=== PATIENT | male | born 1945 | race Caucasian/White ===

== ENCOUNTER 2025-03-09 01:56 | Inpatient (IN) | payer OTHER, MEDICARE ==
[2025-03-09] VITALS (25 sets, daily range): BP systolic 60–184; BP diastolic 35–86; PULSE 54–87; RESP 9–22; O2SAT 93–100
[~2025-03-09] VITALS: Ht 185.4 cm; Wt 78.6 kg
--- NOTE | 2025-03-09 02:09 | ELECTROCARDIOGRAPH REPORT ---
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 Sigrid Gamboa Measurements Intervals [place] Rate: 92 P: 74 VA: 217 QRS: 71 QRSD: 89 T: 84 QT: 346 QTc: 429 Interpretive Statements Sinus rhythm Prolonged VA interval Probable left atrial enlargement Inferoposterior infarct, acute (RCA) Probable RV involvement, suggest recording right precordial leads STEMI Electronically Signed On 03-09-2025 2:30:[address] Sigrid Gamboa Please click the below link to view image of tracing.
[2025-03-09] MEDS: heparin 10,000 units/1 ML INJ IV ONE (02:25)
[2025-03-09] MEDS: normal saline 1000ml 1,000 ML IV ONE (02:25)
[2025-03-09 02:26] LABS: MEAN PLATELET VOLUME 7.7 FL (7.4-10.4); RED CELL DISTRIBUTION WIDTH 13.8 % (11.5-14.5)
[2025-03-09] MEDS: normal saline 1000ML IV soln IVB ONE (02:28)
--- NOTE | 2025-03-09 02:28 | Physician Documentation ---
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 For about the last week he has been having some weird symptoms where he has been having chest pressure chest pain GI symptoms heartburn with reflux like symptoms. Pressure some burning as well. It would come and go all week. Last night he seemed to have significant severe symptoms that did not seem to want to go away. He went to sleep was doing better but then awoke with those symptoms again again more severe but now radiating to the left shoulder as well as to the neck. He denies any dizziness no shortness of breath no palpitations. Denies diaphoresis. Medication Reconciliation Allergies: Coded Allergies: No Known Allergies (Unverified , 03/09/25) Past Medical History Past Medical History: Thyroid (unspecified) Past Surgical History: abdominal surgery, orthopedic surgeries, tonsillectomy Other Past Surgical History: diverticulum, ear surgery, eye surgery, Smoking Status: Former smoker Alcohol Use: Sober Drug Use: none Review of Systems All Other Systems at this time: Reviewed and Negative Physical Exam Vital Signs: RN Vital Signs have been reviewed: Yes, Temperature: 98.0, Source: Oral, Heart Rate: 98, Respiratory Rate: 18, BP: 183/98, Pulse Oximetry: 99, Weight: 74.000 Oxygen Flow Rate: 0 Physical Exam General: The patient is well developed, well nourished, nontoxic appearing and is in no acute distress. Skin: [place], warm and dry with no rashes. HEENT: Head was normocephalic and atraumatic. Eyes - pupils equal, round, reactive to light and accommodation. Extraocular movements were intact. Conjunctivae were nonicteric. The mouth and oropharynx were clear with moist mucous membranes. There were no pharyngeal exudates or erythema. Neck: Supple and nontender. There was no jugular venous distention, lymphadenopathy, thyromegaly or masses. Chest: Clear to auscultation bilaterally without wheezes, rales or rhonchi. No accessory muscle use. No dullness to percussion. Heart: Rate regular and rhythmic. S1, S2. No murmurs. Palpation of the chest wall was normal. No rubs or thrills. Abdomen: Soft, nontender and nondistended. Positive bowel sounds. No guarding or rebound. No hepatosplenomegaly or palpable masses. Extremities: No cyanosis, clubbing or edema. The patient moves all extremities. Pulses were equal and symmetric. Neurologic: Motor sensory grossly intact Psychologic: The patient was oriented to person, place and time. The patient demonstrated appropriate judgement and insight. Progress Progress Note STEMI alert was called upon arrival of the patient. Residency was called but did not have a chance to see the patient already went to the microbiology laboratory manager Patient's EKG showed inferior CO with significant ST-elevation in lead three AVF and reciprocal changes in one aVL as well as precordial leads Results/Orders Reviewed/noted all lab results: Yes Results/Orders Orders - CRUZ JAIN MD Chest,Single View (03/09/25 02:07) Monitor (03/09/25 02:07) Saline Lock (03/09/25 02:07) Oxygen (03/09/25 02:07) Electrocardiogram (03/09/25 02:07) Hs Troponin I W Calculations (03/09/25 04:07) Hs Troponin I W Calculations (03/09/25 05:07) Urinalysis, Cult If Indicated (03/09/25 02:07) Normal Saline 1000ml (0.9% Sodium Chlori (03/09/25 02:10) Electrocardiogram (03/09/25 02:07) Heparin 25,000 Unit/250ml Bag (Heparin 2 (03/09/25 02:10) Electrocardiogram (03/09/25 02:12) Hs Troponin I W Calculations (03/09/25 04:12) Hs Troponin I W Calculations (03/09/25 05:12) Heparin 10,000 Unit/Ml 1ml (Heparin 10,0 (03/09/25 02:35) PTT (03/09/25 08:30) Message To Nursing (03/09/25 02:45) Completed Orders - CRUZ JAIN MD Chest,Single View (03/09/25 02:07) Cbc/Diff (03/09/25 02:07) BMP (03/09/25 02:07) PBNP (03/09/25 02:07) Electrocardiogram (03/09/25 02:07) Hs Troponin I W Calculations (03/09/25 02:07) MG (03/09/25 02:07) Pt Inr (03/09/25 02:07) PTT (03/09/25 02:07) Type And Screen (03/09/25 02:07) Aspirin 81mg Chew Tablet (Aspirin 81mg C (03/09/25 02:10) Nitroglycerin 0.4mg/Hr Patch (Nitro-Dur (03/09/25 02:10) Normal Saline 1000ml (0.9% Sodium Chlori (03/09/25 02:10) Heparin 10,000 Unit/Ml 1ml (Heparin 10,0 (03/09/25 02:10) Nitroglycerin 0.2mg/Hour Patch (Nitro-Du (03/09/25 02:30) Tirofiban 12.5mg In Ns 250ml (Aggrastat (03/09/25 02:32) Lidocaine 1% 30ml Vial (Xylocaine 1% Via (03/09/25 02:32) Fentanyl/Pf (Fentanyl 0.05 Mg/Ml Syringe (03/09/25 02:32) Midazolam 1 Mg/Ml 2ml Inj. (Versed 1 Mg/ (03/09/25 02:32) Iohexol 350mg/Ml 50ml Inj (Omnipaque 350 (03/09/25 02:32) Heparin 1,000unit/Ml 10ml Vial (Heparin (03/09/25 02:33) Iohexol 350mg/Ml 100ml (Omnipaque 350mg/ (03/09/25 02:33) Heparin 1,000 Units/Ns 500ml (Heparin 1, (03/09/25 02:33) Metoprolol Tartrate Inj (Lopressor Iv) (03/09/25 02:35) Diphenhydramine Inj (Benadryl Inj.) (03/09/25 02:53) Iohexol 350mg/Ml 100ml (Omnipaque 350mg/ (03/09/25 03:09) Medications Received in ER Medications (Trade) Dose Ordered Sig/Lillian Route PRN Reason Start Time Stop Time Status Last Admin Dose Admin (aspirin 81MG chew tablet) 324 mg ONCE ONCE PO 03/09/25 02:10 03/09/25 02:11 DC 03/09/25 02:27 324 MG (0.9% sodium chloride (NS) 1000ml IV soln) 500 ml ONCE ONCE IVB 03/09/25 02:10 03/09/25 02:11 DC 03/09/25 02:28 500 ML Sodium Chloride 1,000 ml @ 150 mls/hr [id number] ONCE IV 03/09/25 02:10 03/09/25 08:49 03/09/25 02:25 150 MLS/HR (heparin 10,000 unit/ml 1ml inj) 4,000 units ONCE ONCE IV 03/09/25 02:10 03/09/25 02:12 DC 03/09/25 02:25 4,000 UNITS Heparin Sodium/ Dextrose 250 ml @ 9 mls/hr [id number] PRN IV TO MAINTAIN PTT WITHIN RANGE 03/09/25 02:10 03/09/25 02:33 9 MLS/HR (Nitro-Dur 0.2mg/ hour Patch) 1 patch ONCE ONCE TD 03/09/25 02:30 03/09/25 02:34 DC 03/09/25 02:35 1 PATCH (Lopressor IV) 2.5 mg ONCE ONCE IV 03/09/25 02:35 03/09/25 02:36 DC 03/09/25 02:38 2.5 MG Vital Signs 03/09/25 03/09/25 01:58 02:38 Temp 98.0 Pulse 98 100 Resp 18 B/P (MAP) 183/98 Pulse Ox 99 O2 Flow Rate 0 Laboratory Tests Test 03/09/25 02:15 White Blood Count 10.3 Red Blood Count 4.81 Hemoglobin 15.5 Hematocrit 44.8 Mean Corpuscular Volume 93.3 Mean Corpuscular Hemoglobin 32.2 H Mean Corpuscular Hemoglobin Concent 34.5 Red Cell Distribution Width 13.8 Platelet Count 247 Mean Platelet Volume 7.7 Neutrophils (%) (Auto) 77.6 H Lymphocytes (%) (Auto) 14.4 L Monocytes (%) (Auto) 6.3 Eosinophils (%) (Auto) 0.6 Basophils (%) (Auto) 1.1 H Neutrophils # (Auto) 8.0 H Lymphocytes # (Auto) 1.5 Monocytes # (Auto) 0.7 Eosinophils # (Auto) 0.1 Basophils # (Auto) 0.1 CBC Comment Prothrombin Time 11.0 INR International Normalized Ratio 1.1 Activated Partial Thromboplast Time 27 Coagulation Comments Sodium Level 139 Potassium Level 3.7 Chloride Level 103 Carbon Dioxide Level 26.0 Anion Gap 10 Blood Urea Nitrogen 9 Creatinine 1.12 H Estimated GFR/1.73 m2 64 BUN/Creatinine Ratio 8.0 L Glucose Level 149 H Calcium Level 8.8 Magnesium Level 1.9 Troponin I High Sensitivity 7884 *H Pro-B-Type Natriuretic Peptide 1425 H Albumin 4.4 Chemistry Comments Re-Evaluation Re-Evaluation : Re-Evaluation: Unchanged EKG/XRAY/CT/US/VASC/MRI EKG : Intepreting Monitor?: Yes Additional Comment [facility] Test Date: 2025-03-09 Test Time: 02:04:12 Pat Name: JAG ROGERS Department: EMERGENCY ROOM Room: 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 Cruz Jain Measurements Intervals [place] Rate: 92 P: 74 [place]: 217 QRS: 71 QRSD: 89 T: 84 QT: 346 QTc: 429 Interpretive Statements Sinus rhythm Prolonged [place] interval Probable left atrial enlargement Inferoposterior infarct, acute (RCA) Probable RV involvement, suggest recording right precordial leads STEMI Electronically Signed On 03-09-2025 2:30:[address] Cruz Jain Please click the below link to view image of tracing. EKG Date and Time:03/09/25203 Chest X-Ray : Additional Comments CHEST RADIOGRAPH Indication: CP Technique: Single frontal view of the chest was obtained COMPARISON: None FINDINGS: Lines and Tubes: None Lungs: Clear Pleura: No effusion. No pneumothorax. Cardiomediastinal contours: Unremarkable Bones: Unremarkable IMPRESSION: 1. No acute disease. Heart Score: Heart Score Response (Comments) Value History Highly Suspicious [address]-Deviation 2 Age >65 2 Risk Factors No known risk factors 0 Troponin >3 x's Normal limit 2 Total 8 Medical Decision Making Additional information obtaine: old records Findings Patient presents with ST-elevation and significant concern for a heart attack. Chest x-ray was obtained which did not show a widened mediastinum. Laboratory work was obtained WBC 10.3 with no anemia. Normal platelets. Chemistry was obtained normal creatinine of 1.12 however the troponin is elevated at 7884. ProBNP 1425. Rest of chemistries were within normal limits coagulation within normal limits urine was not collected. Upon arrival patient was immediately placed in a bed fluids were given aspirin nitroglycerin 0.2 mg was given because it is an inferior CO also I hung fluids and gave a 500 bolus before giving nitro. Heparin drip was given after a normal chest x-ray. Dr. Gates came to the bedside for an ST-elevation CO alert. lab pack chemist crew was in route. The patient then received 2.5 mg of of Lopressor. Patient was then whisked away under the caring hands of Dr. Gates to the microbiology laboratory manager. Patient appears well. Continuous spaghetti press helper interpretation shows sinus tachycardia heart rate 100s, abnormal, my interpretation. Pulse oximetry monitor interpretation shows normal oxygenation 99% room air, normal, my interpretation. Heart Score: 8 Differential Dx:Considerations: Include: angina, aortic dissection, CHF, costochondritis, esophageal reflux/spasm, gastritis, myocardial infarction, pericarditis, pleuritis, pneumothorax, pulmonary embolus, other Departure Disposition: ADMITTED INPATIENT Admitted to Inpatient Unit: to hospitalist, to commissary worker Admission Level of Care: PCU with Tele Impression: Primary Impression: STEMI (ST elevation myocardial infarction) Qualified Codes: I21.11 - ST elevation (STEMI) myocardial infarction involving right coronary artery Condition: Critical Referrals: NO PRIMARY CARE PROVIDER (PCP) Education Educated: Patient Educated regarding: diagnosis Critical Care Note Total Time (mins): 30 Critical Care Note The very real possibility of a deterioration of this patient's condition required the highest level of my preparedness for sudden, emergent intervention. I provided critical care services, which included medication orders, frequent reevaluations of the patient's condition and response to treatment, ordering and reviewing test results, and discussing the case with various consultants. Excludes time spent performing separately billable procedures. The critical care time associated with the care of the patient was 30 min Signature Scribe Signature: The note accurately reflects work and decisions made by me.Cruz Jain MD 03/09/25 03:17 Attestation: The note accurately reflects work and decisions made by me.Cruz Jain MD 03/09/25 03:16 CRUZ JAIN MD Mar 09, 2025 02:28
[2025-03-09] MEDS ORDERED: LIDOcaine 1% 30ml preserv. free vial ONE (02:32)
[2025-03-09] MEDS ORDERED: iohexol 350 MG/ML 50ML vial IV ONE ×2 (02:32→03:48)
[2025-03-09] MEDS ORDERED: midazolam 1 mg/ML 2ml injection ONE ×2 (02:32→03:36)
[2025-03-09] MEDS ORDERED: tirofiban 12.5mg in NS 250mL 250 ML IV ONE (02:32)
[2025-03-09] MEDS ORDERED: fentaNYL/PF 50MCG/1 ML 2ML syringe ONE (02:32)
[2025-03-09] MEDS ORDERED: heparin 1,000unit/ml 10ml vial 0 ML ONE (02:33)
[2025-03-09] MEDS: heparin 25,000 UNIT/250ml bag 250 ML IV PRN (02:33)
[2025-03-09 02:37] LABS: APTT 27 SECONDS (22-32); INR 1.1 INR
[2025-03-09] MEDS: metoprolol tartrate 1mg/ml inj IV ONE (02:38)
--- NOTE | 2025-03-09 02:38 | RADIOLOGY REPORT ---
CHEST RADIOGRAPH Indication: CP Technique: Single frontal view of the chest was obtained COMPARISON: None FINDINGS: Lines and Tubes: None Lungs: Clear Pleura: No effusion. No pneumothorax. Cardiomediastinal contours: Unremarkable Bones: Unremarkable IMPRESSION: 1. No acute disease.
[2025-03-09 02:46] LABS: CREATININE 1.12 MG/DL (0.60-1.10); PRO BRAIN NATRIURETIC PEPTIDE 1425 PG/ML (0-450); TOTAL CARBON DIOXIDE 26.0 MMOL/L (24-32); eCRCL 58 ML/MIN; eGFR 64 ML/MIN
[2025-03-09] MEDS: MESSAGE TO NURSING IV NR (02:48)
--- NOTE | 2025-03-09 02:51 | CONSULTATION REPORT ---
Cardiac Consultation Report Providers to CC ~ Subjective Subjective Cardiology consultation: 79-year-old male came to emergency room after several days of chest pain and now was found to have an inferior wall myocardial infarction. He has been started on heparin. Continued anginal chest pain. Electrocardiogram shows ST elevation two three and AVF with reciprocal depressions in one aVL. He is on thyroid medication. 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 He does enjoy cigarettes. No recreational drug use. He has had past orthopedic surgeries unspecific. And thyroid surgery. Objective Vitals Vital Signs Date Time Temp Pulse Resp B/P (MAP) Pulse Ox O2 Delivery O2 Flow Rate FiO2 03/09/25 02:38 100 03/09/25 01:58 98.0 18 183/98 99 0 Lab Results: 03/09/25 0215 03/09/25 0215 Objective Carotid no bruit chest clear to auscultation percussion heart no murmur no S3 gallop no rub abdomen active bowel sounds no bruits pulses plus two upper and lower extremities no edema. Ocular motion intact no nystagmus no tremor. Speech fluent. He is bearded. Coagulation Studies Laboratory Tests Test 03/09/25 02:15 Prothrombin Time 11.0 SECONDS (9.0-12.0) INR International Normalized Ratio 1.1 INR Activated Partial Thromboplast Time 27 SECONDS (22-32) Coagulation Comments Problem\Assessment\Plan Additional Plan Impression inferior wall myocardial infarction in progress Recommendation: Diagnostic coronary angiography with intervention. Risks benefits alternatives discussed he wants to proceed. Risks include and not restricted to stroke myocardial infarction renal failure neurologic vascular complications bleeding complications allergic reaction emergency coronary bypass grafting and its attendant complications. JAG ERICKSON MD Mar 09, 2025 02:51
[2025-03-09] MEDS ORDERED: ondansetron/PF 4mg/2ml inj IV PRN (04:05)
[2025-03-09] MEDS ORDERED: potassium Cl 20 mEq SR tablet PO PRN ×2 (04:05)
[2025-03-09] MEDS ORDERED: magnesium Cl slow-release 64mg tablet PO PRN (04:05)
[2025-03-09] MEDS ORDERED: magnesium sulf-water 2g/50mL 50 ML IV PRN (04:05)
[2025-03-09] MEDS ORDERED: potassium Cl 40MEQ/1/2NS 520ml 520 ML IV PRN (04:05)
[2025-03-09] MEDS ORDERED: magnesium sulf-water 4G/100mL 100 ML IV PRN (04:05)
--- NOTE | 2025-03-09 04:13 | CARDIAC CATH REPORT ---
Cardiology Post Cath Findings Findings Findings: Cardiology post catheterization note: Uncomplicated left heart catheterization coronary arteriography left ventriculography right coronary PTCA and serial stent deployment. 1. Left ventriculogram ejection fraction 45% with inferior apical small akinetic segment with areas of hypokinesis. 2.100 % right coronary improved to 0% MUSTAPHA 0 flow improved to MUSTAPHA three 3. Serial 80% right coronary stenosis prior to stent. Bifurcational 50% posterior descending and distal right coronary narrowing. 4. 60% left main coronary artery narrowing. 5. Bifurcational left anterior descending severe diagonal narrowing of proximally 80% to 85%. 6. Circumflex 40% narrowing large vessel. Comment: Cardiovascular surgical consultation is to be obtained. Continue heparin and Aggrastat for time being. ST segment slowly improving. Arterial line in place. Start low-dose metoprolol XL 12.5 mg daily lisinopril 2.5 mg daily Lipitor 40 mg daily continue home thyroid medication. Use intravenous nitroglycerin for blood pressure control as needed if blood pressures greater than 160 JAG ERICKSON MD Mar 09, 2025 04:13
--- NOTE | 2025-03-09 04:13 | HISTORY AND PHYSICAL-Residence ---
History & Physical Providers to CC Resident Creating Document: EMILE ALFONSO RES CC: PATRIZIA VIVAR MD ~ History of Present Illness Primary Medical Doctor: Dr. [facility] Reason for Admit\Complaint: Chest discomfort worsening since night History of Present Illness 79-year-old male with past medical history of hypothyroidism, Garibay's esophagus, smoker, presented to the ER with chief complaints of chest discomfort for one week, worsening for one night. Patient stated for the past two one week he felt funny kind of burning discomfort over the left side of the chest which is associated with radiation to jaw. He felt like bandlike sensation around his neck and lower head. He denies palpitations, lightheadedness, sweating. He looked up online and even walk could two to four flights of states in few minutes to increased exertion and see whether the pain can be reproduced by exertion. However he noticed the pain was not getting worsened with exertion. Yesterday night he had chest pain which radiated to his left shoulder and it was persistent intensity increased to 5/10 and this made him come to the ER. He denies past medical history of CAD. No history of bleeding disorders. Never had stress test done in the past one year Family history of dissecting aortic aneurysm in mother and stroke/TIAs in father Allergies: Coded Allergies: No Known Allergies (Unverified , 03/09/25) Past Medical History Past Medical History Hypothyroidism Garibay's esophagus Past Surgical History Surgical History Comment ear surgery for fungal CSOM Zenker's diverticulectomy Inguinal hernia surgery Cataract surgery Past Social History Social History Comment Smoker- currently smoking one cigarettes a day, used to smoke 2-4 packs day till the age of 32, alcohol- thinking one drink once in two weeks no other illicit drug use 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 no change in appetite/weight HEENT: No blurring of the vision, No sore throat, epistaxis, tinnitus Cardiovascular: Positive for chest pain/discomfort, no palpitations, syncope. No pedal edema Respiratory: No sob, cough,, hemoptysis, complaining of postnasal drip Gastrointestinal: Positive for nausea No abdominal pain, vomiting. No diarrhea, constipation, melena. Genitourinary: No frquency, urgency, incontinence, nocturia. No dysuria, hematuria Musculoskeletal: No arthralgia, myalgia Endocrine: No fatigue, polydipsia, polyuria. No heat or cold intolerance Neurologic: No headache, vertigo. No weakness, numbness or tingling of extremities Psychiatric: No hallucinations/delusions, no anhedonia, no suicidal ideation\ Hematologic: No bleeding or bruises Reviewed in full. All negative except for pertinent positives in HPI Exam Vitals: Vital Signs Date Time Temp Pulse Resp B/P (MAP) Pulse Ox O2 Delivery O2 Flow Rate FiO2 03/09/25 02:38 100 03/09/25 01:58 98.0 18 183/98 99 0 General: General: Pleasant elderly male, AAO x4, not in apparent distress Head: Normocephalic with an atraumatic Eyes: Pupils- 3mm, reacting to light, conjunctiva- anicteric Nose and throat: No polyps, septum- normal, no mucosal ulcers Neck: Supple, no lymphadenopathy, no carotid bruit Respiratory: No use of accessory muscles of respiration, Bilateral normal vesiscular breath sounds heard. No wheeze, rhochi or creps Cardiac: S1-S2 heard, rythm regular, no gallop/murmur Abdomen: non distended, no tenderness, no organomegaly, bowel sounds- heard Extremities: no clubbing, no pedal edema, no deformities, peripheral pulses- 2+, right fem sheath in place Skin: warm and dry, no rash, no purpura Neuro: No focal deficit, gross cranial nerve exam- normal Diagnostic Data Last Recorded Lab Results: 03/09/25 0215 03/09/25 0215 Diagnostic Data: Laboratory Tests Test 03/09/25 02:15 Prothrombin Time 11.0 SECONDS (9.0-12.0) INR International Normalized Ratio 1.1 INR Activated Partial Thromboplast Time 27 SECONDS (22-32) Coagulation Comments Advance Care Planning Advanced Care plannin - 30 Minutes (Code status is discussed with him and and the patient stated he does not want prolonged resuscitation or to be a vegetable. His son would be making decisions for him if needed. Currently he is okay with full code) Additional Plan 79-year-old male with past medical history of hypothyroidism, Garibay's esophagus, presented to the ER with chief complaints of chest discomfort for one week, worsening for the past one day Inferior wall STEMI S/p right coronary PTCA and serial stent deployed on 03/09 -EKG showed ST elevation in two three AVF, reciprocal depressions in one, aVL -high sensitivity troponins x1- 7884 -in the ER patient received aspirin 324 mg, heparin 4000 units, NTG 0.4 mg/hour patch, Lopressor 2.5 mg IV -he was taken to clinical laboratory aide by Dr. Gates -coronary angiogram findings- 100 % RCA, serial 80% right coronary stenosis, 50% posterior descending and distal coronary narrowing, 60% left main coronary artery narrowing, 40% LCX, 80-85% lad narrowing -right coronary PTCA and serial stent deployed Plan -follow up on lipid panel, A1c, TSH, 2D echo -initiated on atorvastatin 40 mg once daily, -start on low-dose metoprolol succinate 12.5 mg once daily, lisinopril 2.5 mg once daily -maintain systolic blood pressure less than 160, use intravenous NTG if needed -recommended cardiovascular surgical consultation -continue heparin and Aggrastat Hypothyroidism -follow up on TSH -continue levothyroxine 50 mcg once daily Barretts esophagus -continue Protonix 40 mg once daily Code Status: Full code Line/tube: PIV, right femoral arterial line, right fem sheath DVT prophylaxis: Heparin Nutrition: Heart healthy PT: Yes Prognosis: Guarded Disposition: Continue care in ICU, CTVS consultation in the a.m. Emile Alfonso MD IM PGY-3 resident Labs and Vital per Dr Alfonso's note above Agree with her A/P Plan reviewed with bedside team. Patient seen through remote audiovisual assessment through HIPAA compliant setup. All labs, flowsheets, and images reviewed Cumulative nonprocedural care time spent in directed patient care = 60 min Date of Service: Mar 09, 2025 Billing Provider: PATRIZIA VIVAR MD, HARIVARSHA, RES Mar 09, 2025 04:13 PATRIZIA VIVAR MD Mar 09, 2025 05:54
[2025-03-09 04:44] LABS: CHOL/HDL RATIO 6.1 (0.00-4.99); LDL CHOLESTEROL 217 MG/DL (50-100)
[2025-03-09] MEDS: PERFLUTREN PROTEIN-A MICROSPHR (Optison) 0.22 MG/ML 3ML VIAL IV ONE (04:46)
[2025-03-09] MEDS: nitroGLYCERIN-Tridil 50MG/D5W 250 ML IV ONE (04:47)
[2025-03-09] MEDS ORDERED: nitroGLYCERIN-Tridil 50MG/D5W 250 ML IV PRN (04:50)
[2025-03-09] MEDS: NORepinephrine 8mg/ 250ml NS 250 ML IV SCH (05:54)
[2025-03-09] MEDS: atropine 0.1mg/ml 10ml syringe ONE (05:54)
[2025-03-09] MEDS: normal saline 1000ml 1,000 ML IV SCH ×2 (05:55→06:00)
[2025-03-09] MEDS: NORepinephrine 8mg/ 250ml NS 250 ML IV ONE (05:57)
[2025-03-09] MEDS: atropine 0.1mg/ml 10ml syringe IV ONE (05:57)
[2025-03-09] MEDS: tirofiban 12.5mg in NS 250mL IV SCH (06:00)
[2025-03-09] MEDS ORDERED: OXAZEpam 15mg capsule PO PRN (06:00)
[2025-03-09] MEDS ORDERED: HYDROcodone/acetaminophen 10/325mg tab PO PRN ×2 (06:00)
[2025-03-09 06:20] LABS: MEAN PLATELET VOLUME 8.4 FL (7.4-10.4); RED CELL DISTRIBUTION WIDTH 14.0 % (11.5-14.5)
[2025-03-09 06:30] LABS: APTT 60 SECONDS (22-32)
--- NOTE | 2025-03-09 07:08 | ELECTROCARDIOGRAPH REPORT ---
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 MEENA Gutiérrez Measurements Intervals [place] Rate: 75 P: 78 AL: 208 QRS: 31 QRSD: 87 T: -52 QT: 429 QTc: 480 Interpretive Statements Sinus rhythm Borderline low voltage, extremity leads Abnormal T, consider ischemia, inferior leads ST elevation, consider inferior injury Baseline wander in lead(s) V3 Electronically Signed On 03-09-2025 17:33:[address] MEENA Gutiérrez Please click the below link to view image of tracing.
[2025-03-09] MEDS: MESSAGE TO NURSING IV ONE ×3 (07:20→21:30)
[2025-03-09 07:23] LABS: CREATININE 0.99 MG/DL (0.60-1.10); TOTAL CARBON DIOXIDE 21.7 MMOL/L (24-32); eCRCL 65 ML/MIN; eGFR 73 ML/MIN
--- NOTE | 2025-03-09 07:46 | CONSULTATION REPORT ---
History of Present Illness Providers to Chest pain with STEMI Reason for Admit\Admit Dx: Chest discomfort worsening since night Refering MD: Dr. [facility] History of Present Illness 79 yo male former 40 pk year smoking history presents with one month c/o fatigue and atypical CP. Over the past week it has progressed and due to the severity he sought medical attention. He was diagnosed with STEMI and emergency cardiac catheterization revealed acute closure of the RCA and additional 3 vessel CAD with moderate LV dysfunction. PCI stent was inserted in the RCA and the patient was started on anticoagulation. He is currently hemodynamically stable and pain free. I have been asked to see him regarding CABG. Allergies: Coded Allergies: No Known Allergies (Unverified , 03/09/25) Past Medical History Medical History Comment Dyslipidemia Garibay's esophagus Hypothyroidism Former smoker Past Surgical History Surgical History Comment Zenker's diverticulectomy Past Social History Social History Comment Remote 40 pack year smoking history. Patient quit smoking over a year ago by his report Physical Exam Last Vital Signs Recorded: Temperature: 98.0, Source: Temporal, Heart Rate: 80, Respiratory Rate: 14, BP: 150/81, Pulse Oximetry: 100, Weight: 74.000 General Appearance: alert, no apparent distress, thin Neck: normal inspection, supple, non-tender, carotid bruit (soft bruit on right) Respiratory: lungs clear, no respiratory distress Chest: no accessory muscle use, chest non-tender Cardiovascular: normal peripheral pulses, regular rate, rhythm, no edema, no JVD, no murmur Peripheral Pulses: 0 carotid (L); 1+ carotid (R) Gastrointestinal: normal palpation, non-tender Extremities: non-tender, no edema, no calf tenderness Neurologic: oriented x4 Psychiatric: normal mood/affect Skin: normal color, warm/dry Review of Systems ROS ROS Comments: as per HPI Results Diagram Lab Result Diagram: 03/09/25 0530 03/09/25 0530 Assessment/Plan 79 yo male with h/o Dyslipidemia, Garibay's esophagus and Hypothroidism, former 40 pk year smoking history presents with one month c/o fatigue and atypical CP. Over the past week it has progressed and due to the severity he sought medical attention. He was diagnosed with STEMI and emergency cardiac catheterization revealed acute closure of the RCA and additional 3 vessel CAD with moderate LV dysfunction. PCI stent was inserted in the RCA and the patient was started on anticoagulation. He is currently hemodynamically stable and pain free. I have been asked to see him regarding CABG. I will plan Coronary Artery Bypass Surgery in next 24 - 48 hours after complete preoperative evaluation. This will include RA ABG, chest CT without, vein mapping, carotid US and echocardiogram. I have discussed above with the patient including plan for CABG. I reviewed the associated risk and complications and answered all of his questions. He understands and agrees to proceed. PIOTR ARGUETA MD Mar 09, 2025 07:46
[2025-03-09] MEDS ORDERED: docusate sod 100mg capsule PO SCH (08:00)
[2025-03-09] MEDS: K and/or MAG REPLACEMENT MC SCH (08:00)
[2025-03-09 08:18] LABS: CHOL/HDL RATIO 5.4 (0.00-4.99); LDL CHOLESTEROL 166 MG/DL (50-100)
[2025-03-09 09:00] LABS: MEAN PLATELET VOLUME 8.7 FL (7.4-10.4); RED CELL DISTRIBUTION WIDTH 14.5 % (11.5-14.5)
[2025-03-09] MEDS ORDERED: MESSAGE TO NURSING PO ONE ×2 (09:05)
[2025-03-09] MEDS ORDERED: VANCOMYCIN/H2O 1.5g/300mL PB 300 ML IV ONE (09:05)
[2025-03-09] MEDS ORDERED: MESSAGE TO PHARMACY IJ ONE ×2 (09:05→09:25)
[2025-03-09] MEDS ORDERED: dextrose 50%-water 50ml dispensing syringe IV PRN (09:05)
[2025-03-09] MEDS ORDERED: ceFAZolin 2gm/dext,iso 50mL 50 ML IV ONE (09:05)
[2025-03-09] MEDS ORDERED: insulin glargine (Lantus) pen - multi-dose SQ PRN (09:05)
[2025-03-09] MEDS: Insulin Reg/NS 100units/100mL 100 ML IV SCH (09:05)
[2025-03-09 09:16] LABS: CREATININE 0.98 MG/DL (0.60-1.10); TOTAL CARBON DIOXIDE 25.8 MMOL/L (24-32); eCRCL 66 ML/MIN; eGFR 74 ML/MIN
[2025-03-09 09:49] LABS: INR 1.1 INR
[2025-03-09 09:55] LABS: ABG BASE EXCESS -0.9 mmol/L (-2.0-3.0); ABG HCO3 22.8 mmol/L (21.0-28.0); ABG OXYGEN SATURATION 97.5 % (94.0-98.0); ABG PCO2 (T) 34.5 mmHg (35.0-48.0); ABG PH (T) 7.437 (7.350-7.450); ABG PO2 (T) 85.2 mmHg (83.0-108.0); ALLEN'S TEST POSITIVE; FCOHb 0.8 % (0.5-1.5); FHHb 2.5 % (0.0-5.0); FIO2 32.0 mmHg/%; FLOW 3 L/min; FMetHb 0.0 % (0.0-1.5); FO2Hb 96.7 % (94.0-98.0); MODE NASAL CANNULA; PATIENT TEMPERATURE 36.6; RESPIRATORY RATE 16 b/min; TOTAL HEMOGLOBIN 13.9 G/dl (13.5-17.5)
[2025-03-09] MEDS: docusate sod 100mg capsule PO SCH (10:13)
[2025-03-09] MEDS: levoTHYROXINE 25mcg tablet PO SCH (10:13)
[2025-03-09] MEDS ORDERED: LEVO25TA7 PO (10:29)
[2025-03-09 11:39] LABS: LEUKOCYTE ESTERASE ,URINE NEGATIVE (Neg); NITRITES, URINE NEGATIVE (Neg); OCCULT BLOOD,URINE NEGATIVE (Neg)
[2025-03-09 11:44] LABS: UA COLLECTION TYPE NON-SPECIFIED
--- NOTE | 2025-03-09 13:23 | RADIOLOGY REPORT ---
Lower Extremity Duplex Doppler Reflux Study Date: 03/09/2025 11:28 AM Clinical History: preop Comparison: None Findings: InaRations Pre-op Risk Factors Cardiac Disease Vein Measurements Great Saphenous Small Saphenous Right Lef Right Left Saph-Fem. 3.55mm 3.60mm Proximal Junction Mid Thigh 2.37mm 2.40mm Mid Distal Thigh 3.03mm 2.96mm Distal Proximal Calf 3.35mm 2.50mm Mid Calf 2.56mm 1.70mm Distal Calf 3.25mm 1.99mm CONCLUSION The Great Saphenous Vein was located, marked and measured bilaterally. The Great Saphenous Vein appears patent bilaterally.
[2025-03-09] MEDS: heparin 10,000 units/1 ML INJ IV PRN (14:27)
--- NOTE | 2025-03-09 18:14 | PROGRESS NOTE ---
Daily Progress Note Providers to CC ~ Antibiotic Timeout Antibiotic Ordered?: No Subjective Patient was seen in CICU and as per patient he has already evaluated by Cardiovascular surgeon likely Dr. Alcazar. Myles Denied any chest pain to me in visit. I reviewed Cardiothoracic vascular consult note and as per Dr. Bueno" I will plan Coronary Artery Bypass Surgery in next 24 - 48 hours after complete preoperative evaluation.This will include RA ABG, chest CT without, vein mapping, carotid US and echocardiogram. I have discussed above with the patient including plan for CABG. I reviewed the associated risk and complications and answered all of his questions. He understands and agrees to proceed. Objective Vital Signs Date Time Temp Pulse Resp B/P (MAP) Pulse Ox O2 Delivery O2 Flow Rate FiO2 03/09/25 18:00 55 11 113/51 (71) 93 Nasal Cannula 1.0 03/09/25 17:00 98.2 Result Diagram: 03/09/25 0807 03/09/25 0807 General-patient not in any acute distress, alert awake oriented, age- appropriate, looks comfortable HEENT-atraumatic normocephalic, neck supple without elevated JVD, no thyromegaly or carotid bruit. No lymphadenopathy bilaterally. Eyes-no icterus or pallor seen in eyes Chest-clear to auscultation bilaterally, breathing nonlabored no tachypnea, no wheezing, no crepitation, no crackles. Heart-S1-S2 normal, regular heart rate no murmur Abdomen bowel sounds positive on auscultation, soft nondistended nontender no guarding, no rigidity Skin no active skin rash Neurology-grossly intact, nonfocal alert awake oriented Extremity- no pedal edema able to move all 4 extremities Psychiatry - patient is not confused or agitated cooperated during physical examination Coagulation Studies Laboratory Tests Test 03/09/25 05:30 03/09/25 08:07 03/09/25 13:46 Activated Partial Thromboplast Time 60 SECONDS (22-32) H Prothrombin Time 11.4 SECONDS (9.0-12.0) INR International Normalized Ratio 1.1 INR APTT (Heparin Protocol) 39 SECONDS (45-60) L Coagulation Comments Problem\\Assessment\\Plan 79-year-old male with past medical history of hypothyroidism, Garibay's esophagus, presented to the ER with chief complaints of chest discomfort for one week, worsening for the past one day Inferior wall STEMI S/p right coronary PTCA and serial stent deployed on 03/09 -EKG showed ST elevation in two three AVF, reciprocal depressions in one, aVL -high sensitivity troponins x1- 7884 -in the ER patient received aspirin 324 mg, heparin 4000 units, NTG 0.4 mg/hour patch, Lopressor 2.5 mg IV -he was taken to garage laborer by Dr. Gates -coronary angiogram findings- 100 % RCA, serial 80% right coronary stenosis, 50% posterior descending and distal coronary narrowing, 60% left main coronary artery narrowing, 40% LCX, 80-85% lad narrowing -right coronary PTCA and serial stent deployed Plan reviewed lipid panel, A1c, TSH, 2D echo - on atorvastatin 40 mg once daily, -on low-dose metoprolol succinate 12.5 mg once daily, lisinopril 2.5 mg once daily -will maintain systolic blood pressure less than 160, use intravenous NTG if needed - cardiovascular surgical consultation done by Dr. Alcazar. Myles -continue heparin and Aggrastat 03/09- I reviewed Cardiothoracic vascular consult note and as per Dr. Bueno" I will plan Coronary Artery Bypass Surgery in next 24 - 48 hours after complete preoperative evaluation.This will include RA ABG, chest CT without, vein mapping, carotid US and echocardiogram. I have discussed above with the patient including plan for CABG. I reviewed the associated risk and complications and answered all of his questions. He understands and agrees to proceed. Hypothyroidism -TSH 7.50 -continue levothyroxine 50 mcg once daily Barretts esophagus -continue Protonix 40 mg once daily Code Status: Full code Line/tube: PIV, right femoral arterial line, right fem sheath DVT prophylaxis: Heparin Nutrition: Heart healthy PT: Yes Patient's current condition is guarded further management as recommended by cardiovascular thoracic surgeon Dr. Bueno . We will continue to follow patient in CICU Date of Service: Mar 09, 2025 Billing Provider: SARAH HARRELL MD Common Visit Codes: [id number] INP/OBS CARE(HIGH) SARAH HARRELL MD Mar 09, 2025 18:13
--- NOTE | 2025-03-09 18:26 | VASCULAR REPORT ---
Indication: 40 year history of smoking, hypertension, preoperative Technique: Real-time ultrasound images of the neck vessels with bentley-scale, color and wave Doppler were obtained. Comparison: None Findings: There is aoxo-tz-aswtlyia atherosclerotic plaque bilaterally most pronounced within the carotid bulb/ proximal ICA region bilaterally. The following peak systolic velocities were recorded in cm/sec: Right internal carotid: 83 Right common carotid: 130 Right external carotid: 102 Right internal/common carotid ratio: 1.2 Left internal carotid: 89 Left common carotid: 100 Left external carotid: 144 Left internal/common carotid ratio: 0.1 Right vertebral artery: Patent with normal antegrade direction of flow. Left vertebral artery: Patent with normal antegrade direction of flow. Impression: No hemodynamically significant stenosis by velocity criteria. Rarh-kg-osybdkzp bilateral atherosclerotic plaque.
[2025-03-09] MEDS: mupirocin 2% nasal ointment 1gm UD NS SCH (20:00)
[2025-03-10] VITALS (24 sets, daily range): BP systolic 97–166; BP diastolic 43–74; PULSE 50–76; RESP 9–22; O2SAT 94–100
[2025-03-10] MEDS: heparin 25,000 UNIT/250ml bag 250 ML IV PRN (01:40)
[2025-03-10 03:16] LABS: CREATININE 1.06 MG/DL (0.60-1.10); TOTAL CARBON DIOXIDE 26.8 MMOL/L (24-32); eCRCL 61 ML/MIN; eGFR 68 ML/MIN
[2025-03-10 03:20] LABS: MEAN PLATELET VOLUME 8.6 FL (7.4-10.4); RED CELL DISTRIBUTION WIDTH 14.0 % (11.5-14.5)
[2025-03-10] MEDS: MESSAGE TO NURSING IV ONE ×4 (04:10→21:18)
[2025-03-10 06:58] LABS: PHOSPHORUS 3.0 MG/DL (2.3-4.5)
[2025-03-10] MEDS ORDERED: metoprolol succinate 25mg (24-HOUR) SR. Tablet PO SCH (08:00)
[2025-03-10] MEDS ORDERED: metoprolol tartrate 1mg/ml inj IV ONE (08:00)
[2025-03-10] MEDS ORDERED: heparin 10,000 units/1 ML INJ ONE (08:00)
[2025-03-10] MEDS ORDERED: metoprolol tartrate 12.5mg (1/2 tablet) PO SCH (08:00)
--- NOTE | 2025-03-10 08:42 | PROGRESS NOTE ---
Progress Note CV Providers to CC ~ Antibiotics Ordered?: No Subjective Subjective No overnight chest complaints. Uncomfortable as he is immobile d/t his sheath remaining in place. Preop teaching done. Preop studies reviewed. ABG was done on 3L NC rather than room air. For some reason Chest CT was not done despite being ordered. I have spoken with Radiology and they have assured me that CT will be done today. Planning for CABG tomorrow AM at 0830. Objective Vitals Vital Signs Date Time Temp Pulse Resp B/P (MAP) Pulse Ox O2 Delivery O2 Flow Rate FiO2 03/10/25 08:00 57 03/10/25 06:00 97.9 17 98/45 (62) 99 Nasal Cannula 1.0 Lab Results: 03/10/25 0227 03/10/25 0227 Coagulation Studies Laboratory Tests Test 03/09/25 05:30 03/09/25 08:07 03/10/25 02:27 Activated Partial Thromboplast Time 60 SECONDS (22-32) H Prothrombin Time 11.4 SECONDS (9.0-12.0) INR International Normalized Ratio 1.1 INR APTT (Heparin Protocol) 47 SECONDS (45-60) Coagulation Comments Cardiac Rhythm: Sinus Rhythm KRISTEN ENCISO Mar 10, 2025 08:42
--- NOTE | 2025-03-10 09:46 | RADIOLOGY REPORT ---
CLINICAL INFORMATION: Preoperative exam. Planned CABG. TECHNIQUE: Axial CT imaging of the chest was performed without IV contrast. Sagittal and coronal reformatted images were made, stored and reviewed. Evaluation is limited without IV contrast. One or more of the following dose reduction techniques were used: Automated exposure control. Adjustment of mA and/or kV according to patient size. CTDIvol = 13.85 mGy DLP = 593.96 mGy-cm COMPARISON: DI CHEST,SINGLE VIEW on DOS: 03/09/25 FINDINGS: Aorta: Moderate atherosclerotic calcification at the aortic arch and descending thoracic aorta. No aneurysm. Cardiac: Heart size is within normal limits. Dense coronary artery calcification. Mediastinum/aurora: Mildly prominent right lower paratracheal lymph node measuring up to 1.1 cm in short axis dimension, likely reactive, with normal reniform shape and fatty hilum. Heterogeneous thyroid gland with 2.7 cm nodule in the right thyroid lobe. Lungs: Scattered areas of subsegmental atelectasis. There is mild pleural parenchymal scarring in the lung apices. Pulmonary arteries: No gross abnormality. Chest wall: No mass or other abnormality. Upper abdomen: Increased density in the gallbladder, likely vicarious excretion of contrast from the recent cardiac catheterization. Nonspecific thickening of the gastric folds at the fundus and body of the stomach. Bones: No fracture or suspicious intraosseous lesions. IMPRESSION: 1. No evidence of acute disease in the chest. 2. Moderate atherosclerotic calcification of the thoracic aorta 3. Right thyroid nodule. Based on size, recommend nonemergent thyroid ultrasound to further characterize, per ACR white paper on incidentally detected thyroid nodules. 4. Additional nonacute findings as described above.
--- NOTE | 2025-03-10 12:42 | PROGRESS NOTE ---
Progress Note Cardiology Providers to CC ~ Subjective Subjective Cardiology progress note: rescue serial stents right coronary 03/09/2025 four inferior wall MS. patient maintained on intravenous heparin and Aggrastat since that time. He is scheduled for coronary bypass grafting for left main and three-vessel coronary arterial disease for 06/2024. Sons at bedside. Once again I explained to the patient the seriousness of his situation he has coronary artery disease and he seems perplexed that he could develop this as he has been taking statins. Objective Result Diagram: 03/10/2522603/10/25226 Objective Carotid no bruit chest clear to auscultation percussion heart no S3 gallop no rub abdomen active bowel sounds no bruits pulses plus two upper and lower extremities no edema. Ocular motion intact no nystagmus no tremors speech fluent symmetric normal strength. Coagulation Studies Laboratory Tests Test 03/09/25 05:30 03/09/25 08:07 03/10/25 08:30 Activated Partial Thromboplast Time 60 SECONDS (22-32) H Prothrombin Time 11.4 SECONDS (9.0-12.0) INR International Normalized Ratio 1.1 INR APTT (Heparin Protocol) 52 SECONDS (45-60) Coagulation Comments Problem\Assessment\Plan Additional Plan Assessment: Stable awaiting surgery on intravenous heparin intravenous Aggrastat. Plan: Patient already scheduled for surgery for 03/11. Heparin needs to be continued do not stop. Aggrastat will be stopped as per surgical desire prior to procedure. Usually 6-8 hours prior to procedure. Half-life 2 hours. JAG ERICKSON MD Mar 10, 2025 12:42
--- NOTE | 2025-03-10 17:40 | CARDIOLOGY REPORT ---
APPROVED REPORT EXAM: Comprehensive 2D, Doppler, and color-flow Echocardiogram. Patient Location: 2009 A Blood Pressure: 122/60 mmHg Heart Rate: 80 bpm Rhythm: SINUS Indications MYOCARDIAL INFARCTION ELEVATED PROBNP (1425) HS TROPONIN (784, >125,000) S/P RCA STENT X2 Specialty Cook: none, Loan Gates MD (consult) Previous echo: none 2D Dimensions RVDd 4.6 cm IVSd 1.1 (0.7-1.1cm) LVDd 4.4 cm PWd 1.1 (0.7-1.1cm) IVSs 1.2 (0.8-1.2cm) LVDs 3.5 (2.5-4.0cm) PWs 1.4 (0.8-1.2cm) LVOT Diameter 2.20 (1.8-2.4cm) LVEF(%) 42.0 (>50%) FS (%) 20.4 % SV 36.9 ml CO 2.5 L/min M-Mode Dimensions Left Atrium(MM) 3.81 (2.5-4.0cm) Aortic Root 3.66 (2.2-3.7cm) Aortic Cusp Exc 1.72 (1.5-2.0cm) MV EPSS 0.6 (<0.5cm) Aortic Valve AoV Peak Ilia. 129.2 cm/s AoV VTI 22.6 cm AO Peak GR. 6.7 mmHg AO Mean GR. 3 mmHg LVOT VTI 17.20 cm LVOT Peak Ilia. 78.3 cm/s TAYLOR(VTI)/BSA 2.89 cm2/m2 TAYLOR (VTI) 2.89 cm2 AI P 1/2 Time 500 ms AV DI 0.76 % Mitral Valve MV E Velocity 41.9 cm/s MV Peak Gr. 2 mmHg MV DECEL TIME 296 ms MV A Velocity 88.8 cm/s MV PHT 48 ms E/A Ratio 0.5 MVA (PHT) 4.58 cm2 MV VMax 78.7 cm/s TDI Medial E' P. V 8.62 cm/s E/Medial E' 4.9 Tricuspid Valve TR P. Velocity 233 cm/s RAP ESTIMATE 10 mmHg TR Peak Gr. 22 mmHg RVSP 32 mmHg Pulmonary Vein S1 Velocity 39.3 cm/s D2 Velocity 28.2 cm/s PVa Velocity 25.7 cm/s PVa Duration 128 msec LEFT VENTRICLE Normal LV size and wall thickness. Prominent septal knuckle measuring 1.64 cm. No gradient detected around knuckle. Multisegmental wall motion abnormalities. There is moderate LV systolic dysfunction present. Overall estimated LV ejection fraction is about 45% RIGHT VENTRICLE RV is moderately dilated with at least mildly reduced function. RVSP is estimated at 32 mmHg. ATRIA The left atrium size is normal. Mobile interatrial septum - no flow detected. The right atrium size is normal. AORTIC VALVE Trileaflet AV appears mildly sclerotic without stenosis. Moderate insufficiency. MITRAL VALVE Mild MV annular calcification without stenosis. Trace regurgitation. TRICUSPID VALVE TV appears structurally normal with trace regurgitation. PULMONIC VALVE Normal PV without stenosis, physiologic insufficiency. GREAT VESSELS Aortic root is normal in size. PERICARDIUM Normal pericardium. No effusion. Other Information Study Quality: Adequate, but difficult due to patient being supine s/p heart catheterization. Conclusion There is moderate LV systolic dysfunction present. Overall estimated LV ejection fraction is about 45% Normal LV size and wall thickness. Prominent septal knuckle measuring 1.64 cm. No gradient detected around knuckle. Multisegmental wall motion abnormalities. Trileaflet AV appears mildly sclerotic without stenosis. Moderate insufficiency. Mild MV annular calcification without stenosis. Trace regurgitation. Normal PV without stenosis, physiologic insufficiency. Normal pericardium. No effusion.
--- NOTE | 2025-03-10 18:14 | PROGRESS NOTE ---
Daily Progress Note Providers to CC ~ Antibiotic Timeout Antibiotic Ordered?: No Subjective Patient was seen in presence of his neighbors and friends today. He is going to have CABG surgery tomorrow to be done by Dr. Myles Alcazar. Patient looks comfortable denied any new concerns Objective Vital Signs Date Time Temp Pulse Resp B/P (MAP) Pulse Ox O2 Delivery O2 Flow Rate FiO2 03/10/25 18:00 64 13 134/50 (78) 95 Room Air 03/10/25 12:00 98.1 03/10/25 06:00 1.0 Result Diagram: 03/10/2522603/10/25226 General-patient not in any acute distress, alert awake oriented, age- appropriate, looks comfortable HEENT-atraumatic normocephalic, neck supple without elevated JVD, no thyromegaly or carotid bruit. No lymphadenopathy bilaterally. Eyes-no icterus or pallor seen in eyes Chest-clear to auscultation bilaterally, breathing nonlabored no tachypnea, no wheezing, no crepitation, no crackles. Heart-S1-S2 normal, regular heart rate no murmur Abdomen bowel sounds positive on auscultation, soft nondistended nontender no guarding, no rigidity Skin no active skin rash Neurology-grossly intact, nonfocal alert awake oriented Extremity- no pedal edema able to move all 4 extremities Psychiatry - patient is not confused or agitated cooperated during physical examination Coagulation Studies Laboratory Tests Test 03/09/25 05:30 03/09/25 08:07 03/10/25 13:36 Activated Partial Thromboplast Time 60 SECONDS (22-32) H Prothrombin Time 11.4 SECONDS (9.0-12.0) INR International Normalized Ratio 1.1 INR APTT (Heparin Protocol) 49 SECONDS (45-60) Coagulation Comments Problem\\Assessment\\Plan 79-year-old male with past medical history of hypothyroidism, Garibay's esophagus, presented to the ER with chief complaints of chest discomfort for one week, worsening for the past one day Inferior wall STEMI S/p right coronary PTCA and serial stent deployed on 03/09 -EKG showed ST elevation in two three AVF, reciprocal depressions in one, aVL -high sensitivity troponins x1- 7884 -in the ER patient received aspirin 324 mg, heparin 4000 units, NTG 0.4 mg/hour patch, Lopressor 2.5 mg IV -he was taken to syrup machine laborer by Dr. Gates -coronary angiogram findings- 100 % RCA, serial 80% right coronary stenosis, 50% posterior descending and distal coronary narrowing, 60% left main coronary artery narrowing, 40% LCX, 80-85% lad narrowing -right coronary PTCA and serial stent deployed Plan reviewed lipid panel, A1c, TSH, 2D echo - on atorvastatin 40 mg once daily, -on low-dose metoprolol succinate 12.5 mg once daily, lisinopril 2.5 mg once daily -will maintain systolic blood pressure less than 160, use intravenous NTG if needed - cardiovascular surgical consultation done by Dr. Alcazar. Myles -continued on heparin and Aggrastat 03/09- I reviewed Cardiothoracic vascular consult note and as per Dr. Bueno" I will plan Coronary Artery Bypass Surgery in next 24 - 48 hours after complete preoperative evaluation.This will include RA ABG, chest CT without, vein mapping, carotid US and echocardiogram. I have discussed above with the patient including plan for CABG. I reviewed the associated risk and complications and answered all of his questions. He understands and agrees to proceed. Hypothyroidism -TSH 7.50 -continue levothyroxine 50 mcg once daily Barretts esophagus -continue Protonix 40 mg once daily Code Status: Full code Line/tube: PIV, right femoral arterial line, right fem sheath DVT prophylaxis: Heparin Nutrition: Heart healthy PT: Yes Patient's current condition is guarded further management as recommended by cardiovascular thoracic surgeon Dr. Myles Alcazar We will continue to follow patient in CICU Date of Service: Mar 10, 2025 Billing Provider: SARAH HARRELL MD Common Visit Codes: [id number] INP/OBS CARE(MOD) SARAH HARRELL MD Mar 10, 2025 18:14
[2025-03-10] MEDS: magnesium hydroxide 30ml (MOM) UD suspension PO PRN (19:11)
[2025-03-11] VITALS (33 sets, daily range): BP systolic 99–180; BP diastolic 41–97; PULSE 61–90; RESP 8–21; O2SAT 91–100
[2025-03-11 03:47] LABS: MEAN PLATELET VOLUME 8.6 FL (7.4-10.4); RED CELL DISTRIBUTION WIDTH 14.0 % (11.5-14.5)
[2025-03-11 03:57] LABS: CREATININE 0.95 MG/DL (0.60-1.10); TOTAL CARBON DIOXIDE 24.2 MMOL/L (24-32); eCRCL 68 ML/MIN; eGFR 77 ML/MIN
[2025-03-11] MEDS: COMMUNICATION ORDER 1 EA MISC MC ONE (04:00)
[2025-03-11] MEDS: MESSAGE TO NURSING IV ONE (04:15)
[2025-03-11 04:26] LABS: PHOSPHORUS 2.6 MG/DL (2.3-4.5)
[2025-03-11] MEDS: MESSAGE TO PHARMACY IJ ONE ×2 (05:30)
[2025-03-11] MEDS: ceFAZolin 2gm/dext,iso 50mL 50 ML IV ONE (05:30)
[2025-03-11] MEDS: MESSAGE TO NURSING PO ONE ×4 (05:30→05:34)
[2025-03-11] MEDS ORDERED: heparin 10,000 units/1 ML INJ ONE ×2 (06:48→08:47)
[2025-03-11] MEDS ORDERED: vancomycin 1,000mg inj ONE (06:48)
[2025-03-11] MEDS ORDERED: BUPIVAcaine 0.5% inj/PF 30 ML ONE (06:49)
[2025-03-11] MEDS: ringers solution, lacted 1,000 ML IV ONE (07:32)
[2025-03-11] MEDS: VANCOMYCIN/H2O 1.5g/300mL PB 300 ML IV ONE (07:32)
[2025-03-11] MEDS ORDERED: gelatin sponge, absorbable (Gelfoam 100) sponge TP ONE (07:35)
[2025-03-11] MEDS: midazolam 1 mg/ML 2ml injection IV ONE ×2 (07:58→10:05)
[2025-03-11] MEDS ORDERED: papaverine 30 mg/ml 2ml inj. ONE (08:00)
[2025-03-11] MEDS ORDERED: MIDAZolam 1mg/ml 10ml vial ONE (08:17)
[2025-03-11] MEDS ORDERED: potassium Cl 2 mEq/ml inj IV ONE (08:47)
[2025-03-11] MEDS ORDERED: sodium bicarbonate (8.4%) 1 mEq/ml syringe ONE (08:47)
[2025-03-11] MEDS ORDERED: heparin 1,000 units/ml 10ml inj ONE (08:47)
[2025-03-11] MEDS ORDERED: calcium chloride 100 MG/1 ML inj IV ONE (08:47)
[2025-03-11] MEDS ORDERED: mannitol 12.5gm/50mL VIAL IV ONE (08:47)
[2025-03-11] MEDS ORDERED: MAGNESIUM SULFATE 4 MEQ/ML (5gm/10ml) injection ONE (08:47)
[2025-03-11] MEDS ORDERED: LIDOcaine 2% (20 mg/ml) 5ml cardiac syringe ONE (08:47)
[2025-03-11] MEDS ORDERED: methylPREDNISolone sod succ 1,000 MG/16 ML VIAL ONE (08:47)
[2025-03-11] MEDS ORDERED: aminocaproic acid 250 MG/1 ML inj. ONE (08:47)
[2025-03-11] MEDS ORDERED: isoflurane 100ml inhalation liquid IH ONE (08:47)
[2025-03-11] MEDS ORDERED: albumin (human) 25% 100 ML IV solution IV ONE (08:47)
[2025-03-11] MEDS ORDERED: NORepinephrine 1 mg/ml inj IV ONE (08:47)
[2025-03-11] MEDS ORDERED: INSULIN Regular In NS 100 units/100 ML PLAST..BAG IV ONE (08:47)
[2025-03-11 08:48] LABS: ABG BASE EXCESS -1.1 mmol/L (-2.0-3.0); ABG HCO3 21.8 mmol/L (21.0-28.0); ABG OXYGEN SATURATION 99.3 % (94.0-98.0); ABG PCO2 30.8 mmHg (35.0-48.0); ABG PH 7.468 (7.350-7.450); ABG PO2 210.2 mmHg (83.0-108.0); CL (ABG) 109 mmol/L (98-107); FCOHb 0.3 % (0.5-1.5); FHHb 0.7 % (0.0-5.0); FMetHb 0.3 % (0.0-1.5); FO2Hb 98.7 % (94.0-98.0); GLUCOSE (ABG) 106 mg/dl (65-95); IONIZED CA (ABG) 1.10 mmol/L (1.15-1.33); K (ABG) 3.5 mmol/L (3.40-4.50); TOTAL HEMOGLOBIN 11.4 G/dl (13.5-17.5)
[2025-03-11] MEDS ORDERED: 0.9 % SODIUM CHLORIDE 10 ML VIAL ONE (09:20)
[2025-03-11] MEDS ORDERED: SUfentanil 50mcg/ml 1ml amp IV ONE (09:20)
[2025-03-11] MEDS ORDERED: LIDOcaine 2% (20mg/ml) 5ml vial ONE (09:20)
[2025-03-11] MEDS ORDERED: rocuronium 10mg/ml inj IV ONE ×3 (09:20)
[2025-03-11] MEDS ORDERED: propofol inj 20 ML IV ONE (09:20)
[2025-03-11] MEDS ORDERED: phenylephrine 10mg/ml inj. ONE (09:20)
[2025-03-11] MEDS: vancomycin 1,000mg inj IVT ONE (09:26)
[2025-03-11] MEDS: heparin 10,000 units/1 ML INJ IV ONE (09:30)
[2025-03-11 09:37] LABS: ACTIVATED CLOTTING TIME 564.0 SEC (101-148)
[2025-03-11] MEDS ORDERED: midazolam 100mg in NS 100ml 100 ML IV SCH (10:05)
[2025-03-11] MEDS ORDERED: FENTANYL-0.9 % NACL/PF 100 ML IV SCH (10:05)
[2025-03-11] MEDS ORDERED: fentaNYL/PF 50MCG/1 ML 2ML syringe IV PRN (10:05)
[2025-03-11 10:07] LABS: ABG BASE EXCESS 0.7 mmol/L (-2.0-3.0); ABG HCO3 25.7 mmol/L (21.0-28.0); ABG OXYGEN SATURATION 85.7 % (94.0-98.0); ABG PCO2 42.8 mmHg (35.0-48.0); ABG PH 7.396 (7.350-7.450); CL (ABG) 107 mmol/L (98-107); FCOHb 0.3 % (0.5-1.5); FHHb 14.2 % (0.0-5.0); FMetHb 0.1 % (0.0-1.5); FO2Hb 85.4 % (94.0-98.0); GLUCOSE (ABG) 98 mg/dl (65-95); IONIZED CA (ABG) 1.00 mmol/L (1.15-1.33); K (ABG) 5.1 mmol/L (3.40-4.50); TOTAL HEMOGLOBIN 9.1 G/dl (13.5-17.5)
[2025-03-11 10:12] LABS: ABG BASE EXCESS -0.7 mmol/L (-2.0-3.0); ABG HCO3 23.8 mmol/L (21.0-28.0); ABG OXYGEN SATURATION 99.6 % (94.0-98.0); ABG PCO2 38.1 mmHg (35.0-48.0); ABG PH 7.413 (7.350-7.450); CL (ABG) 107 mmol/L (98-107); FCOHb 0.3 % (0.5-1.5); FHHb 0.4 % (0.0-5.0); FMetHb 0.3 % (0.0-1.5); FO2Hb 99.0 % (94.0-98.0); GLUCOSE (ABG) 95 mg/dl (65-95); IONIZED CA (ABG) 1.05 mmol/L (1.15-1.33); K (ABG) 4.7 mmol/L (3.40-4.50); TOTAL HEMOGLOBIN 9.2 G/dl (13.5-17.5)
[2025-03-11 10:42] LABS: ABG BASE EXCESS -0.1 mmol/L (-2.0-3.0); ABG HCO3 24.8 mmol/L (21.0-28.0); ABG OXYGEN SATURATION 99.2 % (94.0-98.0); ABG PCO2 41.8 mmHg (35.0-48.0); ABG PH 7.392 (7.350-7.450); ABG PO2 292.7 mmHg (83.0-108.0); CL (ABG) 107 mmol/L (98-107); FCOHb 0.3 % (0.5-1.5); FHHb 0.8 % (0.0-5.0); FMetHb 0.1 % (0.0-1.5); FO2Hb 98.8 % (94.0-98.0); GLUCOSE (ABG) 99 mg/dl (65-95); IONIZED CA (ABG) 1.07 mmol/L (1.15-1.33); K (ABG) 4.9 mmol/L (3.40-4.50); TOTAL HEMOGLOBIN 10.0 G/dl (13.5-17.5)
[2025-03-11 11:12] LABS: ACT @ 1.70 U 257 SEC (193-297); ACT @ 2.84 U 372 SEC (260-420); BASELINE ACT 127 SEC (101-148); PATIENT WEIGHT 74.0k KG
[2025-03-11 11:14] LABS: ABG BASE EXCESS -1.9 mmol/L (-2.0-3.0); ABG HCO3 22.8 mmol/L (21.0-28.0); ABG OXYGEN SATURATION 99.1 % (94.0-98.0); ABG PCO2 38.3 mmHg (35.0-48.0); ABG PH 7.392 (7.350-7.450); ABG PO2 294.2 mmHg (83.0-108.0); CL (ABG) 109 mmol/L (98-107); FCOHb 0.3 % (0.5-1.5); FHHb 0.9 % (0.0-5.0); FMetHb 0.1 % (0.0-1.5); FO2Hb 98.7 % (94.0-98.0); GLUCOSE (ABG) 111 mg/dl (65-95); IONIZED CA (ABG) 1.08 mmol/L (1.15-1.33); K (ABG) 5.1 mmol/L (3.40-4.50); TOTAL HEMOGLOBIN 9.7 G/dl (13.5-17.5)
[2025-03-11 11:23] LABS: ACTIVATED CLOTTING TIME 484.0 SEC (101-148)
[2025-03-11 11:44] LABS: ABG BASE EXCESS -0.6 mmol/L (-2.0-3.0); ABG HCO3 24.2 mmol/L (21.0-28.0); ABG OXYGEN SATURATION 99.1 % (94.0-98.0); ABG PCO2 40.0 mmHg (35.0-48.0); ABG PH 7.399 (7.350-7.450); ABG PO2 237.6 mmHg (83.0-108.0); CL (ABG) 110 mmol/L (98-107); FCOHb 0.3 % (0.5-1.5); FHHb 0.9 % (0.0-5.0); FMetHb 0.1 % (0.0-1.5); FO2Hb 98.7 % (94.0-98.0); GLUCOSE (ABG) 128 mg/dl (65-95); IONIZED CA (ABG) 1.80 mmol/L (1.15-1.33); K (ABG) 5.3 mmol/L (3.40-4.50); TOTAL HEMOGLOBIN 8.3 G/dl (13.5-17.5)
[2025-03-11 12:13] LABS: ABG BASE EXCESS -0.4 mmol/L (-2.0-3.0); ABG HCO3 23.5 mmol/L (21.0-28.0); ABG OXYGEN SATURATION 99.2 % (94.0-98.0); ABG PCO2 35.3 mmHg (35.0-48.0); ABG PH 7.441 (7.350-7.450); CL (ABG) 111 mmol/L (98-107); FCOHb 0.3 % (0.5-1.5); FHHb 0.8 % (0.0-5.0); FMetHb 0.2 % (0.0-1.5); FO2Hb 98.7 % (94.0-98.0); GLUCOSE (ABG) 126 mg/dl (65-95); IONIZED CA (ABG) 1.18 mmol/L (1.15-1.33); K (ABG) 4.5 mmol/L (3.40-4.50); TOTAL HEMOGLOBIN 8.6 G/dl (13.5-17.5)
[2025-03-11 12:16] LABS: ACTIVATED CLOTTING TIME 121 SEC (101-148)
[2025-03-11] MEDS ORDERED: dexamethasone sod phosphate 4mg/ml inj. ONE (12:39)
[2025-03-11] MEDS ORDERED: ondansetron/PF 4mg/2ml inj ONE (12:39)
[2025-03-11] MEDS ORDERED: albumin (Human) 5% 250ml 250 ML IV ONE ×2 (12:40)
[2025-03-11 12:46] LABS: ABG PO2 399.2 mmHg (83.0-108.0)
[2025-03-11 12:46] LABS: ABG PO2 48.5 mmHg (83.0-108.0)
[2025-03-11 12:47] LABS: ABG PO2 326.7 mmHg (83.0-108.0)
[2025-03-11] MEDS ORDERED: dextrose 50%-water 50ml dispensing syringe IV PRN (13:00)
[2025-03-11] MEDS ORDERED: normal saline 250ml IV soln 250 ML IV PRN (13:00)
[2025-03-11] MEDS ORDERED: nitroGLYCERIN-Tridil 50MG/D5W 250 ML IV PRN (13:00)
[2025-03-11] MEDS ORDERED: SODIUM PHOSPHATE IN D5W 260 ML IV PRN (13:00)
[2025-03-11] MEDS ORDERED: potassium Cl 40MEQ/270ML bag 250 ML IV PRN (13:00)
[2025-03-11] MEDS ORDERED: insulin glargine (Lantus) pen - multi-dose SQ PRN (13:00)
[2025-03-11] MEDS ORDERED: metoclopramide 5 mg/ml inj IV PRN (13:00)
[2025-03-11] MEDS ORDERED: bisacodyl 10mg suppository rectal RC PRN (13:00)
[2025-03-11] MEDS ORDERED: potassium Cl 40MEQ/1/2NS 520ml 520 ML IV PRN (13:00)
[2025-03-11] MEDS ORDERED: HYDROcodone/acetaminophen 10/325mg tab PO PRN (13:00)
[2025-03-11] MEDS ORDERED: ondansetron/PF 4mg/2ml inj IV PRN (13:00)
[2025-03-11] MEDS ORDERED: mineral oil 133ml enema RC PRN (13:00)
[2025-03-11] MEDS ORDERED: niCARDipine-NS 40mg/200ml IVPB 200 ML IV PRN (13:00)
[2025-03-11] MEDS ORDERED: potassium CL 10mEq/100ml bag 100 ML IV PRN (13:00)
[2025-03-11] MEDS ORDERED: Insulin Reg/NS 100units/100mL 100 ML IV SCH (13:00)
[2025-03-11] MEDS ORDERED: magnesium hydroxide 30ml (MOM) UD suspension PO PRN (13:00)
--- NOTE | 2025-03-11 13:04 | PROCEDURE NOTE - Respiratory ---
Procedure Note-Respiratory Providers to CC Copies To 1: JAG ERICKSON MD Procedure Name: This is a spirometry study dated March 09, 2025. Spirometry measurements: Both the forced vital capacity and the FEV1 are in the normal range. The FEV1 ratio is in the lower range of normal. Some of the flow rates are borderline reduced. Bronchodilator was not administered as part of the study. Conclusion: This study shows mild abnormality. There is evidence for obstructive ventilatory defect although it appears to be quite mild. It is recommended that the patient completely abstain from cigarette smoking. Bronchodilator therapy may help this patient. We have no previous studies for comparison. NAZIA HOWELL MD Mar 11, 2025 13:04
--- NOTE | 2025-03-11 13:19 | OPERATIVE REPORT ---
Operative Report Providers to Ischemic CAD Date of Procedure: Mar 11, 2025 Pre-Operative Diagnosis: STEMI Post-Operative Diagnosis SAME as PRE-Op Procedure Performed CABG x 4 PEREIRA to LAD SVG to Diagonal SVG to OM SVG to distal RCA Surgeon: Ottoniel WHITNEY Production Planner Carmen WHITNEY 2nd certified nursing assistant - Carl SHIRLEY Anesthesiologist: Dax Hofmfan Type of Anesthesia: General Findings: Improved LV function by post operative echocardiogram Complications None Prosthetics\Implants used: None Estimated Blood Loss: < 200 ml Specimen Removed: None Description of Procedure: The patient was brought to the operating suite and placed in supine position. Intravenous, arterial, and [place]-Salomon catheter was inserted by anesthesia. The patient was intubated and prepped and draped in routine sterile fashion. Time- out was performed and at this point saphenous vein was harvested from the right lower extremity by endovascular technique by Mr.Hillebert SHIRLEY and I performed a median sternotomy and took down the left SHARYN. Once completed the patient is heparinized and a distal SHARYN was divided. It had excellent flow and stored in the left pleural space. The undersurface in the area of the SHARYN takedown was injected with 0.25% bupivacaine for analgesia. The pericardium was opened and retracted an aortic and atrial cannulation performed. An antegrade cardioplegia cannula was inserted and the patient was begun on cardiopulmonary bypass. The cross-clamp was placed around the ascending aorta and closed with delivery of antegrade cardioplegia for a total of 1200 cc. There was arrest at the 1st 300 cc. The heart was examined with the assistance of Mr. Henry and he was present throughout the entire operation. He played an integral part of the operation with exposure of the heart during anastomosis as well as exposure of the vein and SHARYN. The 1st anastomosis was saphenous vein graft to the distal right after the takeoff of the PDA. The distal vessel measured approximately 1.2 mm in size. This was performed with 7-0 Prolene and once completed flow was tested and was appeared to fill the PDA. After another dose of cardioplegia the vein was anastomosed to the ascending aorta with six 0 Prolene. After each anastomosis the patient was given a dose of cardioplegia with the next anastomosis of the vein graft to the diagonal and then ascending aorta with six 0 Prolene. The diagonal measured approximately 1.5 mm in size. Next the vein was anastomosed to the obtuse marginal with seven 0 Prolene. The obtuse marginal measured approximately 1.3 mm in size. The SHARYN was brought through the pericardium and anastomosed to the mid to distal LAD with 7-0 Prolene. It had good flow and no leakage was tacked in place. The last anastomosis of saphenous vein graft to the ascending aorta with six 0 Prolene. The cross-clamp was removed and the patient regained a spontaneous sinus rhythm. He is ventilated and weaned from cardiopulmonary bypass without difficulty. There was good flow and low resistance in all grafts although appeared diminished in the obtuse marginal. Doppler of the obtuse marginal noted excellent triphasic flow. The patient was given protamine for reversal of heparin and the antegrade cardioplegia cannula was removed with over-sewing of the site with a pledget of Prolene suture. The aortic and atrial cannula removed and also were oversewn wi th pledgeted sutures. Adequate hemostasis was noted and a size 24 right angle chest tube was inserted in the left pleural space through a separate skin incision. A large Lyle drain was inserted through a separate incision along the mediastinum. A bipolar pacing wire was inserted on the anterior wall of the right ventricle and brought through a separate skin incision. The pericardium was closed over the heart and the sternum was approximated with four sternal wires and two cables around the upper and lower portion of the sternum. The fascia, subcutaneous tissue, and skin were closed. The wound was dressed and the patient was transported to the intensive care unit in stable condition with all lap and needle count correct. Counts repoted as correct: Yes X-Ray findings: No Foreign body PIOTR ARGUETA MD Mar 11, 2025 13:19
[2025-03-11 13:23] LABS: ABG BASE EXCESS -1.3 mmol/L (-2.0-3.0); ABG HCO3 23.4 mmol/L (21.0-28.0); ABG OXYGEN SATURATION 97.9 % (94.0-98.0); ABG PCO2 (T) 38.1 mmHg (35.0-48.0); ABG PH (T) 7.403 (7.350-7.450); ABG PO2 (T) 100.4 mmHg (83.0-108.0); FCOHb 0.7 % (0.5-1.5); FHHb 2.1 % (0.0-5.0); FIO2 80.0 mmHg/%; FMetHb 0.3 % (0.0-1.5); FO2Hb 96.9 % (94.0-98.0); MODE VENT - SIMV; PATIENT TEMPERATURE 36.1; PEEP 5 cm H2O; RESPIRATORY RATE 12 b/min; TIDAL VOLUME 550 mL; TOTAL HEMOGLOBIN 11.7 G/dl (13.5-17.5)
[2025-03-11 13:38] LABS: MEAN PLATELET VOLUME 8.3 FL (7.4-10.4); RED CELL DISTRIBUTION WIDTH 13.8 % (11.5-14.5)
[2025-03-11 14:03] LABS: CREATININE 0.87 MG/DL (0.60-1.10); PHOSPHORUS 1.6 MG/DL (2.3-4.5); TOTAL CARBON DIOXIDE 24.9 MMOL/L (24-32); eCRCL 74 ML/MIN; eGFR 85 ML/MIN
[2025-03-11 14:16] LABS: OXYGEN SATURATION (MIXED VEN) 75.6 % (60-80); PO2 MIXED VENOUS (TEMP COR) 35.7 mmHg (35-46)
[2025-03-11] MEDS: morphine 4 MG/ML inj SYRINge IV PRN (14:18)
--- NOTE | 2025-03-11 14:26 | ELECTROCARDIOGRAPH REPORT ---
[facility] Test Date: 2025-03-11 Test Time: 14:25:28 Pat Name: JAG ROGERS Department: [facility] 2S Room: [facility] 2011 A Gender: M Certified Appliance Service Technician: CHAD : 1945 Requested By: KRISTEN ENCISO Order Number: [id number] Reading MD: Dr. MEENA Gutiérrez Measurements Intervals Braggs Rate: 85 P: 93 MS: 212 QRS: 55 QRSD: 96 T: -78 QT: 420 QTc: 500 Interpretive Statements Sinus rhythm Borderline prolonged MS interval Borderline ST depression, anterolateral leads Abnormal T, consider ischemia, inferior leads Minimal ST elevation, inferior leads Electronically Signed On 03-11-2025 17:07:[address] MEENA Gutiérrez Please click the below link to view image of tracing.
--- NOTE | 2025-03-11 14:38 | RADIOLOGY REPORT ---
CHEST RADIOGRAPH Indication: POST OP Technique: Single frontal view of the chest was obtained Comparison: CT CT CHEST on DOS: 03/10/25, CT CT CHEST on DOS: 03/10/25, DI CHEST,SINGLE VIEW on DOS: 03/09/25 FINDINGS: Lines and Tubes: Endotracheal tube 6.5 cm from the marianela. Nasogastric tube appears in the left mainstem bronchus. Repositioning recommended. Right internal jugular swan-Salomon catheter with tip in the pulmonary artery. Right internal jugular central venous catheter with tip in the SVC. Mediastinal drain is present. Left chest tube is good positioning. Lungs: Bibasilar atelectasis. Pleura: No effusion. No pneumothorax. Cardiomediastinal contours: Unremarkable Bones: Median sternotomy. IMPRESSION: Nasogastric tube appears in the left mainstem bronchus. Repositioning recommended Status post CABG. Bibasilar atelectasis
[2025-03-11 14:40] LABS: APTT 30 SECONDS (22-32); INR 1.2 INR
[2025-03-11] MEDS: sodium phos 15mmol/D5 255mL 255 ML IV PRN (15:16)
[2025-03-11] MEDS: ceFAZolin/D5W- 1GM premix 50 ML IV SCH (15:47)
[2025-03-11] MEDS: Insulin Reg/NS 100units/100mL 100 ML IV SCH (16:09)
[2025-03-11 16:20] LABS: ABG BASE EXCESS -4.0 mmol/L (-2.0-3.0); ABG HCO3 20.6 mmol/L (21.0-28.0); ABG OXYGEN SATURATION 98.6 % (94.0-98.0); ABG PCO2 (T) 35.1 mmHg (35.0-48.0); ABG PH (T) 7.384 (7.350-7.450); ABG PO2 (T) 117.4 mmHg (83.0-108.0); FCOHb 0.4 % (0.5-1.5); FHHb 1.4 % (0.0-5.0); FIO2 40.0 mmHg/%; FMetHb 0.3 % (0.0-1.5); FO2Hb 97.9 % (94.0-98.0); MODE VENT - CPAP; PATIENT TEMPERATURE 36.5; PEEP 5 cm H2O; RESPIRATORY RATE 8 b/min; TOTAL HEMOGLOBIN 11.4 G/dl (13.5-17.5)
[2025-03-11] MEDS: albumin (Human) 5% 250ml 250 ML IV PRN (17:40)
--- NOTE | 2025-03-11 18:11 | CARDIOLOGY REPORT ---
APPROVED REPORT EXAM: Intraoperative transesophageal echocardiogram with color flow Doppler. Study contains both pre and post images. Patient Location: CV[facility] Blood Pressure: 105/45 mmHg Heart Rate: 77 bpm Rhythm: NSR Indications CAD CABG x 4 Hx Stents RUPALI probe passed by Juliocesar Hoffman MD Battalion Fire Chief is Loan Gates MD ; Surgeon is Steffen Alcazar MD Previous echo 03/09/2025 [facility] 45% EF ; mod AI LEFT VENTRICLE PRE: LV appears normal in size and thickness. Overall systolic function appears mildly reduced. LVEF is 45-50%. POST: Improved contractility appreciated in the LV with EF estimated at 60%. RIGHT VENTRICLE PRE:RV appears mildly dilated with normal contractility. POST: Unchanged. ATRIA PRE: Incidental saline study was performed with IV injection of agitated normal saline at rest. Negative saline study for right to left flow. Left atrial appendage is visualized in multiple planes and appears normal without debris. Left upper pulmonary vein identified and isolated by 2D and color Doppler. POST: Unchanged. AORTIC VALVE PRE: Trileaflet AV appears sclerotic without stenosis. Mild insufficiency. POST: Unchanged. MITRAL VALVE PRE: MV is thickened with trace multi jet regurgitation. POST: Unchanged. TRICUSPID VALVE PRE: The tricuspid valve is normal in structure with trace regurgitation. POST: Unchanged. PULMONIC VALVE PRE: The pulmonary valve is normal in structure with trace insufficiency. POST: Unchanged. GREAT VESSELS PRE: Descending aorta is normal in caliber. POST: Unchanged. PERICARDIUM PRE: There is no pericardial effusion. POST: Unchanged. CONCLUSION PRE: LV appears normal in size and thickness. Overall systolic function appears mildly reduced. LVEF is 45-50%. POST: Improved contractility appreciated in the LV with EF estimated at 60%. PRE:RV appears mildly dilated with normal contractility. POST: Unchanged. PRE: Incidental saline study was performed with IV injection of agitated normal saline at rest. Negative saline study for right to left flow. Left atrial appendage is visualized in multiple planes and appears normal without debris. Left upper pulmonary vein identified and isolated by 2D and color Doppler. POST: Unchanged. PRE: Trileaflet AV appears sclerotic without stenosis. Mild insufficiency. POST: Unchanged. PRE: MV is thickened with trace multi jet regurgitation. POST: Unchanged. PRE: The tricuspid valve is normal in structure with trace regurgitation. POST: Unchanged. PRE: The pulmonary valve is normal in structure with trace insufficiency. POST: Unchanged. PRE: There is no pericardial effusion. POST: Unchanged. Conclusion PRE: LV appears normal in size and thickness. Overall systolic function appears mildly reduced. LVEF is 45-50%. POST: Improved contractility appreciated in the LV with EF estimated at 60%. PRE:RV appears mildly dilated with normal contractility. POST: Unchanged. PRE: Incidental saline study was performed with IV injection of agitated normal saline at rest. Negative saline study for right to left flow. Left atrial appendage is visualized in multiple planes and appears normal without debris. Left upper pulmonary vein identified and isolated by 2D and color Doppler. POST: Unchanged. PRE: Trileaflet AV appears sclerotic without stenosis. Mild insufficiency. POST: Unchanged. PRE: MV is thickened with trace multi jet regurgitation. POST: Unchanged. PRE: The tricuspid valve is normal in structure with trace regurgitation. POST: Unchanged. PRE: The pulmonary valve is normal in structure with trace insufficiency. POST: Unchanged. PRE: There is no pericardial effusion. POST: Unchanged.
--- NOTE | 2025-03-11 18:16 | PROGRESS NOTE ---
Progress Note Cardiology Providers to CC ~ Subjective Subjective Cardiology progress note: Postop day 0. Bypass grafting x4. Prior inferior wall UT rescue stent deployment. Left main and triple-vessel disease. Objective Result Diagram: 03/11/25 1315 03/11/25 1315 Objective Intubated not yet awake. Normal sinus rhythm rate 90. Chest tube in place. Platelet count [id number] hemoglobin 10.9. Pericardial rub. No edema. No heart murmur. Coagulation Studies Laboratory Tests Test 03/11/25 03:15 03/11/25 08:45 03/11/25 12:12 03/11/25 13:15 APTT (Heparin Protocol) 57 SECONDS (45-60) Patient Sex (Coag) M Patient Height (Coag) 185cm Patient Weight (Coag) 74.0k KG Patient Blood Volume 5940 ML Pump Volume 1500 ML Total Blood Volume 7440 ML Projected Heparin Concentration 2.6 MG/KG Heparin [place] 101 Calculated Heparin Bolus 87858 UNITS Activated Coagulation Time Baseline 127 SEC (101-148) Activated Coag Time 1.70 U/mL 257 SEC (193-297) Activated Coag Time 2.84 U/mL 372 SEC (260-420) Heparin Level (COAG) 0 MG/KG Calculated Heparin Req (Hep Assay) 27155 UNITS Calculated Protamine Req (Hep Assay 0 MG Activated Clotting Time 121 SEC (101-148) Prothrombin Time 12.1 SECONDS (9.0-12.0) H INR International Normalized Ratio 1.2 INR Activated Partial Thromboplast Time 30 SECONDS (22-32) Fibrinogen 301 MG/DL (177-424) Coagulation Comments Coagulation Clinical Comments Problem\Assessment\Plan Additional Plan Assessment and plan: Doing very well in the early postop does not require any inotropes. Nitroglycerin is used p.r.n. for blood pressure control. Continue post bypass recovery protocol. JAG ERICKSON MD Mar 11, 2025 18:16
[2025-03-11 19:29] LABS: MEAN PLATELET VOLUME 8.4 FL (7.4-10.4); RED CELL DISTRIBUTION WIDTH 13.9 % (11.5-14.5)
--- NOTE | 2025-03-11 19:52 | PROGRESS NOTE- Residence ---
Progress Note - Resident Providers to CC Resident Creating Document: YOSEPH CONSTANTINO RES ~ Antibiotic Timeout Antibiotic Ordered?: No Subjective I could not examine the patient as patient was taken for CABG. Hospitalist team will sign off Objective Vital Signs Date Time Temp Pulse Resp B/P (MAP) Pulse Ox O2 Delivery O2 Flow Rate FiO2 03/11/25 18:56 66 11 99 40 03/11/25 18:00 98.8 104/44 (64) Mechanical Ventilator 03/10/25 06:00 1.0 Result Diagram: 03/11/25 1910 03/11/25 1315 Could not examined the patient as patient was taken for CABG Coagulation Studies Laboratory Tests Test 03/11/25 03:15 03/11/25 08:45 03/11/25 12:12 03/11/25 13:15 APTT (Heparin Protocol) 57 SECONDS (45-60) Patient Sex (Coag) M Patient Height (Coag) 185cm Patient Weight (Coag) 74.0k KG Patient Blood Volume 5940 ML Pump Volume 1500 ML Total Blood Volume 7440 ML Projected Heparin Concentration 2.6 MG/KG Heparin [place] 101 Calculated Heparin Bolus 18083 UNITS Activated Coagulation Time Baseline 127 SEC (101-148) Activated Coag Time 1.70 U/mL 257 SEC (193-297) Activated Coag Time 2.84 U/mL 372 SEC (260-420) Heparin Level (COAG) 0 MG/KG Calculated Heparin Req (Hep Assay) 84626 UNITS Calculated Protamine Req (Hep Assay 0 MG Activated Clotting Time 121 SEC (101-148) Prothrombin Time 12.1 SECONDS (9.0-12.0) H INR International Normalized Ratio 1.2 INR Activated Partial Thromboplast Time 30 SECONDS (22-32) Fibrinogen 301 MG/DL (177-424) Coagulation Comments Coagulation Clinical Comments Plan Plan 79-year-old male with past medical history of hypothyroidism, Garibay's esophagus, presented to the ER with chief complaints of chest discomfort for one week, worsening for the past one day Inferior wall STEMI S/p right coronary PTCA and serial stent deployed on 03/09 -EKG showed ST elevation in two three AVF, reciprocal depressions in one, aVL -high sensitivity troponins x1- 7884 -in the ER patient received aspirin 324 mg, heparin 4000 units, NTG 0.4 mg/hour patch, Lopressor 2.5 mg IV -he was taken to dental laboratory technician apprentice by Dr. Gates -coronary angiogram findings- 100 % RCA, serial 80% right coronary stenosis, 50% posterior descending and distal coronary narrowing, 60% left main coronary artery narrowing, 40% LCX, 80-85% lad narrowing -right coronary PTCA and serial stent deployed Plan reviewed lipid panel, A1c, TSH, 2D echo - on atorvastatin 40 mg once daily, -on low-dose metoprolol succinate 12.5 mg once daily, lisinopril 2.5 mg once daily -will maintain systolic blood pressure less than 160, use intravenous NTG if needed - cardiovascular surgical consultation done by Dr. Alcazar. Myles -continued on heparin and Aggrastat -CABG today Hypothyroidism -TSH 7.50 -continue levothyroxine 50 mcg once daily Barretts esophagus -continue Protonix 40 mg once daily Hospitalist team will sign off. Thank you for allowing us to participate in the patient care Yoseph Constantino MD Internal Medicine Resident, PGY 3 Date of Service: Mar 11, 2025 Billing Provider: SARAH HARRELL MD, MANOJNA RES Mar 11, 2025 19:52
[2025-03-11 20:07] LABS: CREATININE 1.10 MG/DL (0.60-1.10); PHOSPHORUS 3.5 MG/DL (2.3-4.5); TOTAL CARBON DIOXIDE 26.7 MMOL/L (24-32); eCRCL 59 ML/MIN; eGFR 65 ML/MIN
[2025-03-11 20:11] LABS: ABG BASE EXCESS -1.9 mmol/L (-2.0-3.0); ABG HCO3 22.7 mmol/L (21.0-28.0); ABG OXYGEN SATURATION 94.6 % (94.0-98.0); ABG PCO2 (T) 38.3 mmHg (35.0-48.0); ABG PH (T) 7.393 (7.350-7.450); ABG PO2 (T) 73.5 mmHg (83.0-108.0); FCOHb 0.5 % (0.5-1.5); FHHb 5.4 % (0.0-5.0); FIO2 40.0 mmHg/%; FMetHb 0.3 % (0.0-1.5); FO2Hb 93.8 % (94.0-98.0); MODE vent- cpap/ps; PATIENT TEMPERATURE 37.3; PEEP 5 cm H2O; TOTAL HEMOGLOBIN 9.0 G/dl (13.5-17.5)
[2025-03-11] MEDS: vancomycin/NS 1 GM ADD-VANTAGE 250 ML IV SCH (20:13)
[2025-03-11] MEDS: mupirocin 2% nasal ointment 1gm UD NS SCH (20:18)
[2025-03-11] MEDS: NORepinephrine 8mg/ 250ml NS 250 ML IV PRN (20:43)
[2025-03-11 21:10] LABS: OXYGEN SATURATION (MIXED VEN) 53.3 % (60-80); PO2 MIXED VENOUS (TEMP COR) 30.6 mmHg (35-46)
[2025-03-11] MEDS: potassium Cl 20mEq/100mL bag 100 ML IV PRN (21:43)
[2025-03-11] MEDS: HYDROcodone/acetaminophen 10/325mg tab PO PRN (21:56)
[2025-03-12] VITALS (25 sets, daily range): BP systolic 100–138; BP diastolic 39–67; PULSE 75–86; RESP 12–20; O2SAT 91–99
[2025-03-12 03:56] LABS: MEAN PLATELET VOLUME 9.2 FL (7.4-10.4); RED CELL DISTRIBUTION WIDTH 13.9 % (11.5-14.5)
[2025-03-12 04:07] LABS: APTT 33 SECONDS (22-32); INR 1.1 INR
[2025-03-12 04:08] LABS: CREATININE 1.13 MG/DL (0.60-1.10); PHOSPHORUS 3.4 MG/DL (2.3-4.5); TOTAL CARBON DIOXIDE 24.1 MMOL/L (24-32); eCRCL 57 ML/MIN; eGFR 63 ML/MIN
[2025-03-12] MEDS: magnesium sulf-water 4G/100mL 100 ML IV PRN (06:38)
[2025-03-12] MEDS: potassium Cl 20 mEq SR tablet PO PRN (06:39)
--- NOTE | 2025-03-12 07:23 | RADIOLOGY REPORT ---
CHEST RADIOGRAPH Indication: POST OP Technique: Single frontal view of the chest was obtained Comparison: DI CHEST,SINGLE VIEW on DOS: 03/11/25, CT CT CHEST on DOS: 03/10/25, CT CT CHEST on DOS: 03/10/25 FINDINGS: Lines and Tubes: There is a right IJ access [place]-Salomon catheter present with its tip projecting over the main pulmonary artery. Right central venous catheter terminates in the superior vena cava. The endotracheal and enteric tube have been removed. There is a left chest tube and mediastinal drain return changed in position. Lungs: There is a left basilar opacity. Pleura: No effusion. No pneumothorax. Cardiomediastinal contours: Unremarkable Bones: No acute osseous abnormality. IMPRESSION: 1. Interval removal of the endotracheal and enteric tube. Other lines and tubes are unchanged. 2. Left basilar opacity which may reflect atelectasis.
[2025-03-12] MEDS: metoprolol tartrate 12.5mg (1/2 tablet) PO SCH (08:00)
--- NOTE | 2025-03-12 08:41 | PROGRESS NOTE ---
Progress Note CV Providers to CC ~ Antibiotics Ordered?: No Subjective Subjective S/P CABG x 4 POD # 1. A bit confused but does reorient. Says pain is controlled. Taking water well. No nausea. On just a bit of levophed. Rec'd 10 of Lasix this morning. Objective Vitals Vital Signs Date Time Temp Pulse Resp B/P (MAP) Pulse Ox O2 Delivery O2 Flow Rate FiO2 03/12/25 08:00 115/48 (77) 03/12/25 07:00 99.0 78 20 97 Nasal Cannula 2.0 03/11/25 20:19 40 Lab Results: 03/12/25 0307 03/12/25 0307 Objective Lungs - mildly diminished at bases Heart - RRR, SR Abd/Extr - OK Incisions - dsgs CDI Coagulation Studies Laboratory Tests Test 03/11/25 03:15 03/11/25 08:45 03/11/25 12:12 03/11/25 13:15 APTT (Heparin Protocol) 57 SECONDS (45-60) Patient Sex (Coag) M Patient Height (Coag) 185cm Patient Weight (Coag) 74.0k KG Patient Blood Volume 5940 ML Pump Volume 1500 ML Total Blood Volume 7440 ML Projected Heparin Concentration 2.6 MG/KG Heparin [place] 101 Calculated Heparin Bolus 34805 UNITS Activated Coagulation Time Baseline 127 SEC (101-148) Activated Coag Time 1.70 U/mL 257 SEC (193-297) Activated Coag Time 2.84 U/mL 372 SEC (260-420) Heparin Level (COAG) 0 MG/KG Calculated Heparin Req (Hep Assay) 95261 UNITS Calculated Protamine Req (Hep Assay 0 MG Activated Clotting Time 121 SEC (101-148) Fibrinogen 301 MG/DL (177-424) Coagulation Clinical Comments Test 03/12/25 03:07 Prothrombin Time 11.5 SECONDS (9.0-12.0) INR International Normalized Ratio 1.1 INR Activated Partial Thromboplast Time 33 SECONDS (22-32) H Coagulation Comments Cardiac Rhythm: Sinus Rhythm Problem\Assessment\Plan Additional Plan POD # 1 SR CI 2.4 Advance diet. Mobilzed. DC prasad, art line. Change to hyperglycemic protocol. Sepsis Screening Reassessment Date: Mar 12, 2025 Supervising Co-signing Provider: KRISTEN Shepherd Mar 12, 2025 08:41
[2025-03-12] MEDS: ceFAZolin 1GM/D5W- ADD-VANTAGE 50 ML IV SCH (08:42)
[2025-03-12] MEDS ORDERED: glucagon, human recombinant 1mg kit SUBCUT PRN (08:45)
[2025-03-12] MEDS ORDERED: dextrose 50%-water 50ml dispensing syringe IV PRN ×2 (08:45)
[2025-03-12] MEDS ORDERED: DEXTROSE 15 GM of carb/4 tabs (each vial/BOTTLE has 4 tablets) PO PRN ×2 (08:45)
[2025-03-12 10:12] LABS: MEAN PLATELET VOLUME 9.1 FL (7.4-10.4); RED CELL DISTRIBUTION WIDTH 14.4 % (11.5-14.5)
[2025-03-12 10:43] LABS: CREATININE 1.24 MG/DL (0.60-1.10); TOTAL CARBON DIOXIDE 21.3 MMOL/L (24-32); eCRCL 52 ML/MIN; eGFR 57 ML/MIN
--- NOTE | 2025-03-12 10:52 | RADIOLOGY REPORT ---
EXAM: CT CT HEAD INDICATION: vision changes TECHNIQUE: CT of the head without intravenous contrast. Radiation Dose : 1. Head: CT Dose: CTDI volume is 64.24 mGy. Dose-length product is 1211.67 mGy*cm The dose indicators for CT are the volume Computed Tomography (CT) Dose Index (CTDIvol) and the Dose Length Product (DLP), and are measured in units of mGy and mGy-cm, respectively. These indicators are not patient dose, but values generated from the CT scanner acquisition factors. The report includes radiation exposure data for exposures received during this examination. COMPARISON: None FINDINGS: Moderately Diminished parenchymal attenuation within the left posterior cerebral artery distribution suggests acute to subacute ischemic infarct. There is no evidence of acute intracranial hemorrhage, extra-axial collection, mass effect, midline shift, herniation or hydrocephalus. Increased prominence of the ventricles, sulci and cisterns consistent with sequelae of atrophic cortical volume loss. The bentley-white differentiation is intact. Moderate diffuse confluent periventricular and subcortical white matter hypoattenuation is nonspecific but may be related to small vessel ischemic disease. The visualized paranasal sinuses and mastoid air cells are clear. The surrounding soft tissues and osseous structures are unremarkable. IMPRESSION: 1. Acute to subacute appearing left FLOW MANAGER distribution infarct. 2. No evidence of acute intracranial hemorrhage. 3. Chronic sequelae of microangiopathy and atrophic cortical volume loss. Critical Result: Stroke Alert Findings discussed with Dr. Myles Alcazar at 03/12/2025 01:49 PM EST, and acknowledged receipt and understanding of the findings. hs:y Radiation optimization: All CT scans at this facility use at least one of these dose optimization techniques: automated exposure control mA and/or kV adjustment per patient size (includes targeted exams where dose is matched to clinical indication) or iterative reconstruction.
--- NOTE | 2025-03-12 11:48 | CONSULTATION REPORT ---
History of Present Illness Providers to CC ~ Reason for Admit\Admit Dx: Chest discomfort worsening since night Refering MD: Dr[facility] Allergies: Coded Allergies: No Known Allergies (Unverified , 03/09/25) Home Medications Home Medications Active Reported Levothyroxine Sodium 25 Mcg Tablet 1 Tab PO DAILY 30 Days Past Family History Family History: Patient reports no known family medical history. Physical Exam Last Vital Signs Recorded: Temperature: 98.0, Source: Temporal, Heart Rate: 79, Respiratory Rate: 20, BP: 140/80, Pulse Oximetry: 91, Weight: 74.000 General Appearance: alert, no apparent distress, thin Neck: normal inspection, supple, non-tender, carotid bruit (soft bruit on right) Respiratory: lungs clear, no respiratory distress Chest: no accessory muscle use, chest non-tender Cardiovascular: normal peripheral pulses, regular rate, rhythm, no edema, no JVD, no murmur Peripheral Pulses: 0 carotid (L); 1+ carotid (R) Gastrointestinal: normal palpation, non-tender Extremities: non-tender, no edema, no calf tenderness Neurologic: oriented x4 Psychiatric: normal mood/affect Skin: normal color, warm/dry Results Diagram Lab Result Diagram: 03/12/25 0940 03/12/25 0940 Assessment/Plan [facility] Note # Demographics Consult Type: Acute Stroke Level 1 (0-4.5 hrs) Patient Location: Inpatient First Name: Dante Last Name: Molly Date of : 1945 Age: 79 Gender: Male Facility: [facility] Time of Initial Page (): 03/12/2025 11:13 First Contact with Site (): 03/12/2025 11:13 # HPI History: 79M reportedly with GA 2, s/p STENT, then had CABG x 4 yesterday, doing ok except for some forgetfulness until today he was reporting some trouble with vision. # Scores Time of exam and NIHSS (): 03/12/2025 11:23 Level of Consciousness 1a: [0] = Alert; keenly responsive LOC Questions 1b: [0] = Answers both questions correctly LOC Commands 1c: [0] = Performs both tasks correctly Best Gaze 2: [0] = Normal Visual 3: [2] = Complete hemianopia Facial Palsy 4: [0] = Normal symmetrical movements Motor Arm Left 5a: [0] = No drift Motor Arm Right 5b: [0] = No drift Motor Leg Left 6a: [0] = No drift Motor Leg Right 6b: [0] = No drift Limb Ataxia 7: [0] = Absent Sensory 8: [0] = Normal Best Language 9: [0] = No aphasia Dysarthria 10: [0] = Normal Extinction and Inattention 11: [0] = No abnormality NIHSS Total: 2 VAN Screening: Negative # Data Time Head CT personally read by me (Bryan Time): 03/12/2025 11:[address]: - preliminarily reviewed by me, please refer to radiology read for official reading - subacute ischemic stroke left 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 # Assessment Impression: - Ischemic Stroke (Subacute) # Plan Thrombolytic/Intervention: NOT IV Thrombolysis or IA Intervention candidate Thrombolytic Exclusion (< 3 hour window): - time of onset unclear Thrombolytic Exclusion: > 4.5 hours Intraarterial Exclusion: - unfavorable imaging/hypodensity Imaging: (urgency: routine): - MRI Brain without contrast - US carotid Diagnostic Test: - echo without bubble study Medication: - aspirin 81 mg PO daily - start statin with goal of LDL < 70 Other: - If patient has any neurological deterioration please call me back immediately - will need event monitor or loop recorder as outpatient if atrial fibrillation not found as inpatient - I have discussed my recommendations with the referring provider - telemetry monitoring Additional Recommendations: If atrial fibrillation is detected, anticoagulation should be considered in place of aspirin, but would not start until about day 7 post stroke due to short-term risk for bleeding complications. Disposition: continue admission # Logistics Attestation of consult completion: The patient is located at: [facility]. Facility staff participated in the visit. I performed this telemedicine visit from my offsite office utilizing interactive 2 way audio and visual telecommunication technology at the request of the onsite inpatient provider. Consent: Verbal consent was obtained from the patient and/or family for this encounter. Total time spent in telemedicine encounter: I spent 20 minutes reviewing clinical data and/or imaging, obtaining history, examining the patient, communicating with the onsite care team, and in preparation of this report. # Demographics First Name: Dante Last Name: Molly Facility: [facility] ERLIN SHULTZ MD Mar 12, 2025 11:48
[2025-03-12] MEDS: mineral oil/petrolatum ophthal oint EACHEYE SCH (13:15)
[2025-03-12] MEDS: INSULIN LISPRO 100 UNIT/ML INSULN.PEN MULTI-DOSE SQ SCH (13:37)
[2025-03-12 15:50] LABS: CREATININE 1.18 MG/DL (0.60-1.10); eCRCL 55 ML/MIN; eGFR 60 ML/MIN
--- NOTE | 2025-03-12 16:12 | PROGRESS NOTE ---
Progress Note CV Providers to CC ~ Antibiotics Ordered?: No Objective Vitals Vital Signs Date Time Temp Pulse Resp B/P (MAP) Pulse Ox O2 Delivery O2 Flow Rate FiO2 03/12/25 15:00 123/40 (71) 03/12/25 11:00 99.0 79 20 91 Nasal Cannula 2.0 03/11/25 20:19 40 Lab Results: 03/12/25 0940 03/12/25 1530 Coagulation Studies Laboratory Tests Test 03/11/25 03:15 03/11/25 08:45 03/11/25 12:12 03/11/25 13:15 APTT (Heparin Protocol) 57 SECONDS (45-60) Patient Sex (Coag) M Patient Height (Coag) 185cm Patient Weight (Coag) 74.0k KG Patient Blood Volume 5940 ML Pump Volume 1500 ML Total Blood Volume 7440 ML Projected Heparin Concentration 2.6 MG/KG Heparin [place] 101 Calculated Heparin Bolus 66580 UNITS Activated Coagulation Time Baseline 127 SEC (101-148) Activated Coag Time 1.70 U/mL 257 SEC (193-297) Activated Coag Time 2.84 U/mL 372 SEC (260-420) Heparin Level (COAG) 0 MG/KG Calculated Heparin Req (Hep Assay) 46093 UNITS Calculated Protamine Req (Hep Assay 0 MG Activated Clotting Time 121 SEC (101-148) Fibrinogen 301 MG/DL (177-424) Coagulation Clinical Comments Test 03/12/25 03:07 Prothrombin Time 11.5 SECONDS (9.0-12.0) INR International Normalized Ratio 1.1 INR Activated Partial Thromboplast Time 33 SECONDS (22-32) H Coagulation Comments Cardiac Rhythm: Sinus Rhythm Problem\Assessment\Plan Additional Plan Options for potential pt transfer to [facility] are being explored to consider possible neuro-intervention. I spoke with the pt at around 1530. He is agreeable to additional studies and potential transfer. The pt reported to me that he has actually had some visual field deficits over the past couple of days prior to surgery that are very similar to what he is having now. These episodes were transient, he says. Ufortunately this was not something he reported to us previously. Repeat Creat was 1.2 on Istat. CTA has been performed and we are awaiting word from [facility] on accepting pt in transfer. Supervising MD Co-signing Provider: KRISTEN Shepherd 4, 2025 16:12
[2025-03-12 16:25] LABS: ISTAT ANION GAP 10.0 (8-12); ISTAT BUN 23.0 mg/dL (7-18); ISTAT CL 110.0 mmol/L (99-107); ISTAT CREATININE 1.2 mg/dL (0.8-1.3); ISTAT GLUCOSE 150.0 mg/dL (70-104); ISTAT HGB 8.8 g/dl (14.0-17.9); ISTAT Hct 26.0 %PCV (42-52); ISTAT IONIZED CALCIUM 1.13 mmol/L (1.03-1.32); ISTAT K 5.2 mmol/L (3.5-5.1); ISTAT NA 140.0 mmol/L (135-145); ISTAT TOTAL CO2 20.0 mmol/L (24-32); ISTAT eGFR 59.0 ML/MIN; POC BUN/CREATININE RATIO 19.2 (5.4-32.0)
--- NOTE | 2025-03-12 16:35 | RADIOLOGY REPORT ---
EXAM: CT CTA NECK/HEAD DATE OF SERVICE: 03/12/2025 03:37 PM ORDERING PHYSICIAN: SARAH HARRELL REASON FOR EXAM: Acute CVA TECHNIQUE: CTA of the brain and neck was performed after the administration of contrast . Axial images of the head and neck are obtained. Coronal and sagittal images were then reformatted for review. MIP reformats were obtained and reviewed. COMPARISON: CT head from today FINDINGS: FINDINGS: Aortic arch atherosclerotic disease. The right common carotid artery demonstrates no high-grade stenosis. [id number] calcification right carotid bulb. Moderate calcification cavernous right ICA. Right internal carotid artery demonstrates no high-grade stenosis. Right middle cerebral artery demonstrates no high-grade stenosis. The right anterior cerebral artery demonstrates no high-grade stenosis. The left common carotid artery demonstrates no high-grade stenosis. [id number] calcification left carotid bulb. Moderate calcification of the cavernous left ICA. Left internal carotid artery demonstrates no high-grade stenosis. The left middle cerebral artery demonstrates no high-grade stenosis. The left anterior cerebral artery demonstrates no high-grade stenosis. The right vertebral artery demonstrates no high-grade stenosis. The left vertebral artery demonstrates no high-grade stenosis. Basilar artery demonstrates no high-grade stenosis. The right posterior cerebral artery demonstrates no high-grade stenosis. Occlusion of the proximal P2 segment of the left posterior cerebral artery. Evolving infarction of the left occipital lobe and medial left temporal lobe. Postsurgical changes orbits from cataract surgery. There is a right thyroid nodule 2.5 cm. There is a small left apical pneumothorax, proximally 10%, incompletely characterized. Right IJ central venous catheters. Moderate to advanced cervical degenerative disc disease. IMPRESSION: Occlusion of the left posterior cerebral artery proximal P2 segment compatible with the prior findings of left QA MANAGER distribution infarction. Evolving infarction of the left QA MANAGER distribution involving the medial left temporal and left occipital lobes. Small left upper lobe pulmonary pneumothorax. 2.5 cm right thyroid nodule. Findings regarding the left QA MANAGER thrombus communicated to the patient's Cardiothoracic surgeon at 03/12/2025
--- NOTE | 2025-03-12 16:48 | DISCHARGE SUMMARY ---
Discharge Summary Providers to CC ~ Discharge Summary Admission Diagnosis: STEMI Hospital Course DATE OF ADMISSION: DATE OF DISCHARGE: Discharge Diagnosis\Comment: S/P CABG, S/P CVA, past medical history of hypothyroidism, Garibay's esophagus, smoker Operations\Procedures: CABG X 4 03/11/25 Consultants: Lou López T. Russ Complications: CVA Condition on DC: Stable for transfer Discharge Summary: This is a very pleasant 79-year-old gentleman with a past medical history of hypothyroidism, Garibay's esophagus, smoking history, and as stated old myocardial infarction that was admitted for complaints of chest discomfort for one week worsening at night. Patient states for the past two weeks he felt a burning discomfort in the left side of his chest associated with radiation to the jaw. This was a bandlike sensation around his neck and lower head. The night prior to admission he had persistent chest pain increasing in intensity and he presented to the emergency department where he was diagnosed with an ST segment elevation DC. His right coronary artery was occluded and was stented by Dr. Gates and the patient was referred for evaluation for coronary artery bypass grafting. Preoperative evaluation was carried out and he was taken to the operating room on March 11, 2025 name of the operation is coronary artery bypass grafting x4 with a left internal mammary artery to the LAD saphenous vein graft to distal RCA saphenous vein graft to a diagonal and saphenous vein graft to an OM also right endoscopic vein harvesting in transesophageal echocardiography. Following the operation the patient is transferred to the CICU stable condition with the following morning he was awake and extubated. He did have some mild confusion when I saw him around 830 in the morning[address] When Dr. Alcazar evaluated the patient at 10:00 a.m. he began complaining of right visual field problems. CT demonstrated an impression of acute to subacute appearing left WAREHOUSE DISTRIBUTION MANAGER distribution infarct along with no evidence of acute intracranial hemorrhage. Stroke alert was called and tele Neurology was involve d. Initial recommendations were continued aspirin. A follow up CTA was performed with consideration being given to the patient is transferred to [facility] for evaluation and potential neuro intervention. The CTA indicated occlusion of the left posterior cerebral artery proximal P2 segment compatible with a prior findings of the left WAREHOUSE DISTRIBUTION MANAGER distribution infarct. 2. Evolving infarction of the left WAREHOUSE DISTRIBUTION MANAGER distribution involving the medial left temporal and left occipital lobes. Ultimately the Interventional Neurology team at [facility] determined the patient was not a candidate for any intervention and the patient was not transferred. His chest drains were removed with the following day along with the pacer wires. MRI demonstrated similar findings. Symptomatically the patient improved in terms of his mentation, aphasia at his gait improved as well. He believes subjectively that his visual field deficit is improving although he does have continued deficits in the right visual calderón. Plavix was added and thus he is on dual antiplatelet therapy. Over the next couple of days he continued to improve and after discussion with both the patient and his son rehab facility was felt to be the best decision for him. He was transferred to the [facility] facility in stable condition with the following discharge program: Follow up appointment with our office in two weeks, follow up appointment with Dr. Gates in four weeks and with his primary physician in six weeks. Activity will be physical therapy and occupational therapy daily. He is okay to shower daily. Medications: Bhupendra smoothie one cup b.i.d., Plavix 75 mg p.o. daily, Protonix 40 mg p.o. daily, aspirin 81 mg p.o. daily, Lipitor 10 mg p.o. daily, senna S tablet one p.o. b.i.d., Milk of magnesia 30 cc p.o. b.i.d. p.r.n. constipation, Tylenol 650 mg p.o. q.4 hours PRN mild pain, Dawson 01/3251 p.o. q.4 hours PRN moderate to severe pain, levothyroxine sodium 50 mcg p.o. daily. *Problems/Diagnosis: (1) STEMI (ST elevation myocardial infarction) Status: Acute Total Time Spent on D/C: > 30 Minutes Counseling Services Smoking & Tobacco Cessation: N/A Problem Qualifiers (1) STEMI (ST elevation myocardial infarction): Qualified Codes: I21.11 - ST elevation (STEMI) myocardial infarction involving right coronary artery KRISTEN ENCISO Mar 12, 2025 16:44
--- NOTE | 2025-03-12 20:50 | PROGRESS NOTE ---
Progress Note Cardiology Providers to CC ~ Subjective Subjective Cardiology progress note: Patient was actually seen by myself at 12:30 p.m. I came back to the hospital to right unknown and I noticed that in the meantime there has been efforts made to transfer him to interventional neuro Center for intervention of a thrombus left [employer]. Recommendation by espinoza cartwright was aspirin daily. He is outside of the window for thrombolysis. Objective Result Diagram: 03/12/25 0940 03/12/25 1530 Objective I saw the patient at noon had word salad he could not express himself but he could follow directions. Blood pressure was 100 systolic. He is on inotrope support. Patient was emotional pre coronary bypass grafting now that is worse. Thinks his life is over and done because he has had a stroke. Coagulation Studies Laboratory Tests Test 03/11/25 03:15 03/11/25 08:45 03/11/25 12:12 03/11/25 13:15 APTT (Heparin Protocol) 57 SECONDS (45-60) Patient Sex (Coag) M Patient Height (Coag) 185cm Patient Weight (Coag) 74.0k KG Patient Blood Volume 5940 ML Pump Volume 1500 ML Total Blood Volume 7440 ML Projected Heparin Concentration 2.6 MG/KG Heparin [place] 101 Calculated Heparin Bolus 31131 UNITS Activated Coagulation Time Baseline 127 SEC (101-148) Activated Coag Time 1.70 U/mL 257 SEC (193-297) Activated Coag Time 2.84 U/mL 372 SEC (260-420) Heparin Level (COAG) 0 MG/KG Calculated Heparin Req (Hep Assay) 75378 UNITS Calculated Protamine Req (Hep Assay 0 MG Activated Clotting Time 121 SEC (101-148) Fibrinogen 301 MG/DL (177-424) Coagulation Clinical Comments Test 03/12/25 03:07 Prothrombin Time 11.5 SECONDS (9.0-12.0) INR International Normalized Ratio 1.1 INR Activated Partial Thromboplast Time 33 SECONDS (22-32) H Coagulation Comments Problem\Assessment\Plan Additional Plan Assessment: During hospitalization there is no documentation of any atrial fibrillation. Recommendation: Continued supportive care. There has not been a reply from any facility for neuro intervention more than likely he will not be accepted. Prognosis guarded. JAG ERICKSON MD Mar 12, 2025 20:50
[2025-03-13] VITALS (25 sets, daily range): BP systolic 89–137; BP diastolic 54–78; PULSE 69–83; RESP 14–25; O2SAT 90–95
--- NOTE | 2025-03-13 03:52 | CARDIOLOGY REPORT ---
DATE OF SERVICE: 03/09/2025 DICTATING PHYSICIAN: Dante Gates MD PROCEDURES: * Left heart catheterization. * Left ventriculography. * Left and right internal mammary angiography. * PTCA, right coronary artery. * Serial stent deployment, right coronary artery. * Right iliofemoral arteriogram. * Conscious sedation administration 60 minutes. BRIEF HISTORY AND INDICATION: This is a 79-year-old hypertensive male with hypothyroidism, COPD, dyslipidemia, general care at the [facility]. Presented with inferior wall myocardial infarction. He thought he was well prior to this event. He has been having warning chest pains yesterday prior to presentation. Risks, benefits, and alternatives of diagnostic heart catheterization intervention were discussed with him and he has decided to proceed. He has persistent ST segment elevation II, III, aVF with reciprocal ST segment depressions and continued pain. 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 He is on intravenous heparin. powerhouse laborer has been called in for an emergent rescue stent angioplasty. Risks included but not restricted to , stroke, myocardial infarction, renal failure, neurologic or vascular complication, bleeding complications, allergic reaction, emergency coronary bypass grafting, and attendant complications. He decided to proceed. He is anxious, somewhat restless. He tends to repeat his questions again and again. TECHNIQUE: Following usual sterile preparation and draping, the right groin was then infiltrated with 9 mL of 1% lidocaine local anesthetic. Conscious sedation was achieved with 3 mg of Versed, 25 mg of Benadryl, 50 mcg of fentanyl during the procedure. The patient arrived to the supervisor dental laboratory on heparin 900 units per hour. He was started on Aggrastat loading dose 25 mcg per kilogram followed by infusion of 0.15 mcg per kilogram per minute. Using single wall puncture technique, J-tip guidewire lead, a 6-[place] sheath was introduced into the right femoral artery. Selective left and right coronary arteriography in multiple projectional obliquities were performed with 6-[place] femoral left 4, right 4 [place]-shaped catheters. A 6-[place] Citizen femoral right guide with side hole was selected and a 0.014 BMW wire was used to negotiate a totally obstructed right coronary at the level of the acute margin. A 2.5-mm Mini-Trek balloon was used to 12 atmosphere to recanalize the vessel. Dissection line was noted. A 2.25 mm x 15 mm serial stent deployment was required to the crux of the right coronary and immediately adjacent. Repeat angiography was performed with stent wire system removed. Left ventriculography was performed with 6-[place] Citizen straight pigtail catheter. Right iliofemoral arteriogram was performed. Sheath was sewn in place. There were no complications. 170 mL of Omnipaque 350 contrast was administered. Fluoroscopy time was 15.4 minutes. Radiation exposure was 9,959 cGy per cm2. FINDINGS: A 79-year-old male, 6 feet 1 inches, 163 pounds. AO 145/67. LV 145/2-11. LEFT VENTRICULOGRAM: Apical inferior akinesis. Ejection fraction 60%. Right iliofemoral artery with 15% narrowings. Left and right internal mammary are smooth. There is calcification of the left main coronary, proximal left anterior descending diagonal, and mid right coronary artery noted. There is 60% distal left main coronary artery narrowing. There is a bifurcation of the left anterior descending diagonal stenosis 80% ostial and proximal in each vessel. There is 1-mm intermediate branch arising from the proximal left anterior descending. It has a 90% ostial narrowing. Left circumflex provides a large obtuse marginal with an 80% eccentric narrowing. The distal left circumflex is small. Right coronary has serial 75%, 85%, 85% narrowing and totally obstructed at the acute margin. MUSTAPHA 0 flow. Post stenting MUSTAPHA 3 flow with residual stenosis of 75, 85, 85 in the proximal and mid segment remaining. Posterior descending is 1.5 mm in diameter, posterolateral less than 1 mm in diameter. RESULTS: * Inferoapical akinetic segment ejection fraction 60%. * Calcification in the left main coronary, left anterior descending and right coronary arteries. * 60% distal left main coronary narrowing. * Bifurcational 80% left anterior descending diagonal narrowing. * 85% narrowing in obtuse marginal. * Small intermediate branch millimeter or less in diameter with 90% ostial narrowing. * An 100% right coronary recanalized with stent, MUSTAPHA 0 flow with MUSTAPHA 3 post procedure, remaining proximal to mid multiple 80% to 85% narrowings. * Left and right internal mammary are smooth. COMMENT: Plan is to keep the patient on intravenous heparin, intravenous Aggrastat, have a cardiothoracic surgical consultation with respect to revascularization of the posterior descending, obtuse marginal, left anterior descending and diagonal. Dante Gates MD TID: [id number] RECEIPT: [id number] TR/RUBINA cc: [facility]
[2025-03-13 04:30] LABS: MEAN PLATELET VOLUME 9.0 FL (7.4-10.4); RED CELL DISTRIBUTION WIDTH 14.5 % (11.5-14.5)
[2025-03-13 04:45] LABS: CREATININE 1.31 MG/DL (0.60-1.10); PHOSPHORUS 3.0 MG/DL (2.3-4.5); TOTAL CARBON DIOXIDE 24.2 MMOL/L (24-32); eCRCL 49 ML/MIN; eGFR 53 ML/MIN
[2025-03-13] MEDS: magnesium sulf-water 2g/50mL 50 ML IV PRN (05:08)
--- NOTE | 2025-03-13 05:59 | RADIOLOGY REPORT ---
CHEST RADIOGRAPH Indication: POST OP Technique: Single frontal view of the chest was obtained COMPARISON: DI CHEST,SINGLE VIEW on DOS: 03/12/25, DI CHEST,SINGLE VIEW on DOS: 03/11/25, CT CT CHEST on DOS: 03/10/25, CT CT CHEST on DOS: 03/10/25, DI CHEST,SINGLE VIEW on DOS: 03/09/25 FINDINGS: Lines and Tubes: Unchanged. Lungs: Stable appearing left pleural effusion and left basilar pulmonary airspace disease. No pneumothorax. Cardiomediastinal contours: Cardiomegaly status post median sternotomy. Bones: Unremarkable IMPRESSION: 1. Left pleural effusion and basilar pulmonary airspace disease. 2. Cardiomegaly. 3. Lines and tubes unchanged.
--- NOTE | 2025-03-13 08:00 | PROGRESS NOTE ---
Progress Note CV Providers to CC ~ Antibiotics Ordered?: No Subjective Subjective S/P CABG x 4 POD # 2. He is awake. Continues with marked R visual field deficit. He is still on some low dose levophed. Needed a sitter overnight for impulsiveness. Overall he is cooperative. He has not reported any suicidal ideation when questioned. Did not eat dinner last night but says he will eat breakfast. Had a couple of small BM's Objective Vitals Vital Signs Date Time Temp Pulse Resp B/P (MAP) Pulse Ox O2 Delivery O2 Flow Rate FiO2 03/13/25 05:56 99.5 75 18 120/65 (83) 93 Nasal Cannula 3.0 03/12/25 21:59 28 Lab Results: 03/13/25 0355 03/13/25 0355 Objective Lungs - diminished L base Heart - RRR, SR Abd/extr - OK Incisions - CDI Coagulation Studies Laboratory Tests Test 03/11/25 03:15 03/11/25 08:45 03/11/25 12:12 03/11/25 13:15 APTT (Heparin Protocol) 57 SECONDS (45-60) Patient Sex (Coag) M Patient Height (Coag) 185cm Patient Weight (Coag) 74.0k KG Patient Blood Volume 5940 ML Pump Volume 1500 ML Total Blood Volume 7440 ML Projected Heparin Concentration 2.6 MG/KG Heparin [place] 101 Calculated Heparin Bolus 46767 UNITS Activated Coagulation Time Baseline 127 SEC (101-148) Activated Coag Time 1.70 U/mL 257 SEC (193-297) Activated Coag Time 2.84 U/mL 372 SEC (260-420) Heparin Level (COAG) 0 MG/KG Calculated Heparin Req (Hep Assay) 05629 UNITS Calculated Protamine Req (Hep Assay 0 MG Activated Clotting Time 121 SEC (101-148) Fibrinogen 301 MG/DL (177-424) Coagulation Clinical Comments Test 03/12/25 03:07 Prothrombin Time 11.5 SECONDS (9.0-12.0) INR International Normalized Ratio 1.1 INR Activated Partial Thromboplast Time 33 SECONDS (22-32) H Coagulation Comments Cardiac Rhythm: Sinus Rhythm Problem\Assessment\Plan Problems/Diagnosis: (1) STEMI (ST elevation myocardial infarction) Status: Acute Additional Plan POD # 2 S/P L posterior CVA. MMCR reviewed and were unable to offer Interventional procedure. Will plan for DAPT. CT output 500 overnight. Keep CTs for this AM. DC pacer wires. Continue B madhu, statin. Mobilize. Does not need psych sitter Sepsis Screening Reassessment Date: Mar 13, 2025 Supervising MD Co-signing Provider: Ottoniel Problem Qualifiers (1) STEMI (ST elevation myocardial infarction): Qualified Codes: I21.11 - ST elevation (STEMI) myocardial infarction involving right coronary artery KRISTEN ENCISO Mar 13, 2025 08:00
[2025-03-13] MEDS: pantoprazole 40mg Tablet.DR PO SCH (08:36)
[2025-03-13] MEDS: midodrine 5mg tablet PO SCH ×2 (15:07→23:17)
--- NOTE | 2025-03-13 16:51 | PROGRESS NOTE ---
Progress Note Cardiology Providers to CC ~ Subjective Subjective Cardiology progress note postop day 2. Coronary bypass grafting cerebrovascular accident with right hemianopsia. Every time patient receives metoprolol his pressure drops into the 80s and requires Levophed. Heart rate usually is in the 70s. Levophed is being weaned off at this time. Physical therapy got him up and he lists to the right however he does have ability to walk. Becoming a little bit more accepting with respect to his cerebrovascular accident is no longer suicidal. Objective Result Diagram: 03/13/25 0355 03/13/25 0355 Objective Carotid no bruit chest no wheeze no rales no pleural rub. Heart no pericardial rub. No peripheral edema. Pulses intact. Creatinine 1.31 hemoglobin 8.5 platelet count [id number]. Coagulation Studies Laboratory Tests Test 03/11/25 03:15 03/11/25 08:45 03/11/25 12:12 03/11/25 13:15 APTT (Heparin Protocol) 57 SECONDS (45-60) Patient Sex (Coag) M Patient Height (Coag) 185cm Patient Weight (Coag) 74.0k KG Patient Blood Volume 5940 ML Pump Volume 1500 ML Total Blood Volume 7440 ML Projected Heparin Concentration 2.6 MG/KG Heparin [place] 101 Calculated Heparin Bolus 13230 UNITS Activated Coagulation Time Baseline 127 SEC (101-148) Activated Coag Time 1.70 U/mL 257 SEC (193-297) Activated Coag Time 2.84 U/mL 372 SEC (260-420) Heparin Level (COAG) 0 MG/KG Calculated Heparin Req (Hep Assay) 22612 UNITS Calculated Protamine Req (Hep Assay 0 MG Activated Clotting Time 121 SEC (101-148) Fibrinogen 301 MG/DL (177-424) Coagulation Clinical Comments Test 03/12/25 03:07 Prothrombin Time 11.5 SECONDS (9.0-12.0) INR International Normalized Ratio 1.1 INR Activated Partial Thromboplast Time 33 SECONDS (22-32) H Coagulation Comments Problem\Assessment\Plan Additional Plan Recommendation: Patient very sensitive to beta blockers at this time perhaps exacerbated by the cerebrovascular accident. Would hold metoprolol for the time being off of Levophed as tolerated. Blood pressure less than 160 and above 100. He never has had atrial fibrillation since hospitalization JAG ERICKSON MD Mar 13, 2025 16:51
[2025-03-13] MEDS: Ensure Enlive - 237ML PO SCH (19:58)
[2025-03-14] VITALS (18 sets, daily range): BP systolic 93–140; BP diastolic 51–75; PULSE 65–85; RESP 10–23; TEMP 98.5–98.7; O2SAT 92–99
[2025-03-14 04:30] LABS: MEAN PLATELET VOLUME 8.9 FL (7.4-10.4); RED CELL DISTRIBUTION WIDTH 14.4 % (11.5-14.5)
[2025-03-14 04:50] LABS: CREATININE 1.17 MG/DL (0.60-1.10); PHOSPHORUS 2.8 MG/DL (2.3-4.5); TOTAL CARBON DIOXIDE 24.2 MMOL/L (24-32); eCRCL 55 ML/MIN; eGFR 60 ML/MIN
[2025-03-14] MEDS: midodrine 5mg tablet PO ONE (09:44)
--- NOTE | 2025-03-14 14:28 | PROGRESS NOTE ---
Progress Note CV Providers to CC ~ Central Line/PICC still needed: No Antibiotics Ordered?: No Subjective Subjective Ambulating, tolerating op, pain well controlled. Objective Vitals Vital Signs Date Time Temp Pulse Resp B/P (MAP) Pulse Ox O2 Delivery O2 Flow Rate FiO2 03/14/25 12:32 99.0 71 18 129/66 (87) 93 Nasal Cannula 1.0 03/13/25 19:46 28 Lab Results: 03/14/25 0355 03/14/25 0355 Objective Neuro: no motor deficits notes Chest: incision dry, intact, lungs clear Ext: warm. no edema Coagulation Studies Laboratory Tests Test 03/11/25 03:15 03/11/25 08:45 03/11/25 12:12 03/11/25 13:15 APTT (Heparin Protocol) 57 SECONDS (45-60) Patient Sex (Coag) M Patient Height (Coag) 185cm Patient Weight (Coag) 74.0k KG Patient Blood Volume 5940 ML Pump Volume 1500 ML Total Blood Volume 7440 ML Projected Heparin Concentration 2.6 MG/KG Heparin [place] 101 Calculated Heparin Bolus 59928 UNITS Activated Coagulation Time Baseline 127 SEC (101-148) Activated Coag Time 1.70 U/mL 257 SEC (193-297) Activated Coag Time 2.84 U/mL 372 SEC (260-420) Heparin Level (COAG) 0 MG/KG Calculated Heparin Req (Hep Assay) 29331 UNITS Calculated Protamine Req (Hep Assay 0 MG Activated Clotting Time 121 SEC (101-148) Fibrinogen 301 MG/DL (177-424) Coagulation Clinical Comments Test 03/12/25 03:07 Prothrombin Time 11.5 SECONDS (9.0-12.0) INR International Normalized Ratio 1.1 INR Activated Partial Thromboplast Time 33 SECONDS (22-32) H Coagulation Comments Cardiac Rhythm: Sinus Rhythm Problem\Assessment\Plan Additional Plan s/p CABGx4, post op acute infarct with visual field deficit, no appreciable motor deficits. MRI planned for today PT/OT Ok to transfer to PCU CONI MCKENNA MD Mar 14, 2025 14:28
[2025-03-14] MEDS: normal saline 250ml IV soln 250 ML IV ONE ×2 (14:42)
--- NOTE | 2025-03-14 15:05 | PROGRESS NOTE ---
Progress Note Cardiology Providers to CC ~ Subjective Subjective Cardiology progress note: 1. Inferior wall PR rescue stenting procedure. 2. 48 hours later coronary bypass grafting left main triple-vessel disease ejection fraction approximately 45%. 3. 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 To sons are present they asked me multiple questions why that this happened how often does this happened. Told them literature says about 1% of the time this can occur then the son tells me that they had called another postbed stitcher who told him the same thing. Patient has had postural hypotension blood pressure down to 80 after coronary bypass grafting Kimmie after the CVA. He has not been helped by the midodrine and is being made worse by the metoprolol. Objective Result Diagram: 03/14/25 0355 03/14/25 0355 Objective Supine blood pressure 120/80 standing 80/40. Dizzy when he stands up. It does not see anything out of his right visual field in both eyes. If I stand on his anatomical left he sees me clearly and recognizes me on the anatomical right he does not see me at all. His speed salad has improved and now he nearly has fluent speech excellent understanding. He has continued to improve. Normal sinus rhythm persists. Coagulation Studies Laboratory Tests Test 03/11/25 03:15 03/11/25 08:45 03/11/25 12:12 03/11/25 13:15 APTT (Heparin Protocol) 57 SECONDS (45-60) Patient Sex (Coag) M Patient Height (Coag) 185cm Patient Weight (Coag) 74.0k KG Patient Blood Volume 5940 ML Pump Volume 1500 ML Total Blood Volume 7440 ML Projected Heparin Concentration 2.6 MG/KG Heparin [place] 101 Calculated Heparin Bolus 40014 UNITS Activated Coagulation Time Baseline 127 SEC (101-148) Activated Coag Time 1.70 U/mL 257 SEC (193-297) Activated Coag Time 2.84 U/mL 372 SEC (260-420) Heparin Level (COAG) 0 MG/KG Calculated Heparin Req (Hep Assay) 34326 UNITS Calculated Protamine Req (Hep Assay 0 MG Activated Clotting Time 121 SEC (101-148) Fibrinogen 301 MG/DL (177-424) Coagulation Clinical Comments Test 03/12/25 03:07 Prothrombin Time 11.5 SECONDS (9.0-12.0) INR International Normalized Ratio 1.1 INR Activated Partial Thromboplast Time 33 SECONDS (22-32) H Coagulation Comments Problem\Assessment\Plan Additional Plan Assessment: 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 Midodrine continue physical therapy. [facility] and the patient care met managers are working on placement. The son's in the patient are encouraged by his continued improvement. JAG ERICKSON MD Mar 14, 2025 15:05
--- NOTE | 2025-03-14 17:44 | RADIOLOGY REPORT ---
EXAMINATION: MR MRI HEAD INDICATION: post stroke COMPARISON: CT CTA NECK/HEAD on DOS: 03/12/25, CT CT HEAD on DOS: 03/12/25 TECHNIQUE: Multiplanar, multisequence magnetic resonance imaging of the brain was performed without the use of intravenous contrast. FINDINGS: Several sequences are degraded by motion artifact. Diffusion-weighted images demonstrate a moderate-sized region of acute infarct within the left temporal and occipital lobe. There is associated edema and mild locoregional mass effect. Punctate foci of ischemia are seen within the right parietal lobe and left frontoparietal lobes. There is periventricular/deep white matter T2/FLAIR hyperintensity is nonspecific, but most commonly associated with chronic microvascular disease. The ventricles and sulci are normal in size for age. Clear basal cisterns. Flow voids in the major intracranial vessels are maintained. There are bilateral lens implants. Paranasal sinuses and mastoid air cells are clear. No abnormality of the visualized osseous structures and extracranial soft tissues. IMPRESSION: 1. Moderate-sized acute/subacute left posterior cerebral artery territorial infarct. Additional small foci of ischemia as above. 2. Age-related involutional changes. Chronic microvascular changes.
[2025-03-14] MEDS ORDERED: magnesium sulf-water 4G/100mL 100 ML IV PRN (18:05)
[2025-03-14] MEDS ORDERED: magnesium sulf-water 2g/50mL 50 ML IV PRN (18:05)
[2025-03-14] MEDS ORDERED: potassium Cl 40MEQ/270ML bag 250 ML IV PRN (18:05)
[2025-03-14] MEDS ORDERED: potassium CL 10mEq/100ml bag 100 ML IV PRN (18:05)
[2025-03-14] MEDS ORDERED: potassium Cl 20 mEq SR tablet PO PRN ×2 (18:05)
[2025-03-14] MEDS ORDERED: potassium Cl 20mEq/100mL bag 100 ML IV PRN (18:05)
[2025-03-14] MEDS ORDERED: potassium Cl 40MEQ/1/2NS 520ml 520 ML IV PRN (18:05)
[2025-03-14] MEDS: magnesium Cl slow-release 64mg tablet PO SCH (20:00)
[2025-03-15] VITALS (10 sets, daily range): BP systolic 109–143; BP diastolic 46–78; PULSE 70–83; RESP 14–22; TEMP 97.9–98.7; O2SAT 91–98
[2025-03-15 06:09] LABS: MEAN PLATELET VOLUME 8.9 FL (7.4-10.4); RED CELL DISTRIBUTION WIDTH 14.1 % (11.5-14.5)
[2025-03-15 08:04] LABS: CREATININE 1.10 MG/DL (0.60-1.10); PHOSPHORUS 2.5 MG/DL (2.3-4.5); TOTAL CARBON DIOXIDE 24.1 MMOL/L (24-32); eCRCL 59 ML/MIN; eGFR 65 ML/MIN
--- NOTE | 2025-03-15 09:36 | PROGRESS NOTE ---
Progress Note CV Providers to CC ~ Antibiotics Ordered?: No Subjective Subjective S/P CABG x 4 POD # 4. Walking with PT this morning. Tires intermittently and needing to rest on his walks. His speech has cleared considerably. Son is present and I discussed DC planning with him. He is hoping for a rehab facility near [place] that is [place] affiliated. Objective Vitals Vital Signs Date Time Temp Pulse Resp B/P (MAP) Pulse Ox O2 Delivery O2 Flow Rate FiO2 03/15/25 08:00 95 Nasal Cannula* 2 28 03/15/25 02:00 98.7 76 22 109/48 (68) Lab Results: 03/15/25 0516 03/15/25 0516 Objective Lungs - mildly diminished at bases. Intermittently needing O2. Heart - RRR, SR Abd/Extr - OK Incisions - CDI Coagulation Studies Laboratory Tests Test 03/11/25 03:15 03/11/25 08:45 03/11/25 12:12 03/11/25 13:15 APTT (Heparin Protocol) 57 SECONDS (45-60) Patient Sex (Coag) M Patient Height (Coag) 185cm Patient Weight (Coag) 74.0k KG Patient Blood Volume 5940 ML Pump Volume 1500 ML Total Blood Volume 7440 ML Projected Heparin Concentration 2.6 MG/KG Heparin [place] 101 Calculated Heparin Bolus 56791 UNITS Activated Coagulation Time Baseline 127 SEC (101-148) Activated Coag Time 1.70 U/mL 257 SEC (193-297) Activated Coag Time 2.84 U/mL 372 SEC (260-420) Heparin Level (COAG) 0 MG/KG Calculated Heparin Req (Hep Assay) 46497 UNITS Calculated Protamine Req (Hep Assay 0 MG Activated Clotting Time 121 SEC (101-148) Fibrinogen 301 MG/DL (177-424) Coagulation Clinical Comments Test 03/12/25 03:07 Prothrombin Time 11.5 SECONDS (9.0-12.0) INR International Normalized Ratio 1.1 INR Activated Partial Thromboplast Time 33 SECONDS (22-32) H Coagulation Comments Cardiac Rhythm: Sinus Rhythm Problem\Assessment\Plan Problems/Diagnosis: (1) STEMI (ST elevation myocardial infarction) Status: Acute Additional Plan POD # 4 S/P CVA. He is on DAPT SR 70's at rest. BP improved today. B madhu is being held. Having BM's DC planning in progress. Sepsis Screening Reassessment Date: Mar 15, 2025 Supervising MD Co-signing Provider: Gabriel Problem Qualifiers (1) STEMI (ST elevation myocardial infarction): Qualified Codes: I21.11 - ST elevation (STEMI) myocardial infarction involving right coronary artery KRISTEN ENCISO Mar 15, 2025 09:36
--- NOTE | 2025-03-15 11:35 | PROGRESS NOTE ---
Progress Note Cardiology Providers to CC ~ Subjective Subjective Cardiology progress note: Postop day four: Status post inferior wall [place] rescue stent. Subsequent coronary bypass grafting x4 for left main and triple-vessel disease. 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 Patient ambulating. Supine blood pressure 140/80 standing blood pressure 100/60 off of beta blockers now. Off of midodrine. Unsteady ataxic needs support needs rehab. Objective Result Diagram: 03/15/25 0516 03/15/25 0516 Objective Sinus rhythm. Lungs clear. Hemoglobin 8.3. No peripheral edema. Coagulation Studies Laboratory Tests Test 03/11/25 03:15 03/11/25 08:45 03/11/25 12:12 03/11/25 13:15 APTT (Heparin Protocol) 57 SECONDS (45-60) Patient Sex (Coag) M Patient Height (Coag) 185cm Patient Weight (Coag) 74.0k KG Patient Blood Volume 5940 ML Pump Volume 1500 ML Total Blood Volume 7440 ML Projected Heparin Concentration 2.6 MG/KG Heparin [place] 101 Calculated Heparin Bolus 56811 UNITS Activated Coagulation Time Baseline 127 SEC (101-148) Activated Coag Time 1.70 U/mL 257 SEC (193-297) Activated Coag Time 2.84 U/mL 372 SEC (260-420) Heparin Level (COAG) 0 MG/KG Calculated Heparin Req (Hep Assay) 12940 UNITS Calculated Protamine Req (Hep Assay 0 MG Activated Clotting Time 121 SEC (101-148) Fibrinogen 301 MG/DL (177-424) Coagulation Clinical Comments Test 03/12/25 03:07 Prothrombin Time 11.5 SECONDS (9.0-12.0) INR International Normalized Ratio 1.1 INR Activated Partial Thromboplast Time 33 SECONDS (22-32) H Coagulation Comments Problem\Assessment\Plan Additional Plan He has been a plan: Improved. Still needs rehabilitation. Continue statins antiplatelets. JAG ERICKSON MD Mar 15, 2025 11:35
--- NOTE | 2025-03-15 12:00 | RADIOLOGY REPORT ---
CHEST RADIOGRAPH Indication: s/p CABG Technique: Single frontal view of the chest was obtained COMPARISON: DI CHEST,SINGLE VIEW on DOS: 03/13/25, DI CHEST,SINGLE VIEW on DOS: 03/12/25, DI CHEST,SINGLE VIEW on DOS: 03/11/25, CT CT CHEST on DOS: 03/10/25, CT CT CHEST on DOS: 03/10/25 FINDINGS: Lines and Tubes: None Lungs: Slightly increased pulmonary vascular congestion. Pleura: Possible trace left pleural effusion.No pneumothorax. Cardiomediastinal contours: Median sternotomy. Cardiomegaly. Bones: Unremarkable IMPRESSION: Slightly increased pulmonary vascular congestion. Possible trace left pleural effusion.
[2025-03-16 02:00] VITALS: BP 154/74; PULSE 79; RESP 20; TEMP 98.1; O2SAT 92
[2025-03-16 06:00] VITALS: BP 156/74; PULSE 77; RESP 18; TEMP 98.2; O2SAT 94; O2SAT 95
[2025-03-16 07:06] LABS: MEAN PLATELET VOLUME 8.3 FL (7.4-10.4); RED CELL DISTRIBUTION WIDTH 14.0 % (11.5-14.5)
[2025-03-16 08:00] VITALS: RESP 11; O2SAT 96; O2SAT 97
[2025-03-16 08:20] LABS: CREATININE 1.02 MG/DL (0.60-1.10); PHOSPHORUS 2.7 MG/DL (2.3-4.5); TOTAL CARBON DIOXIDE 23.2 MMOL/L (24-32); eCRCL 63 ML/MIN; eGFR 71 ML/MIN
--- NOTE | 2025-03-16 08:56 | PROGRESS NOTE ---
Progress Note CV Providers to CC ~ Antibiotics Ordered?: No Subjective Subjective S/P CABG x 4 periop CVA POD # 5. He is alert this morning. Does feel "brain fog" at times. Son is present. He is agreeable to rehab placement. There is no update in the record from DC planning at this time. Continues on and off O2. He believes his visual field deficit has improved somewhat. Objective Vitals Vital Signs Date Time Temp Pulse Resp B/P (MAP) Pulse Ox O2 Delivery O2 Flow Rate FiO2 03/16/25 06:00 98.2 77 18 156/74 (101) 95 Nasal Cannula 2.0 03/15/25 20:00 21 Lab Results: 03/16/25 0628 03/16/25 06 Objective Lungs - fairly clear Heart - RRR, SR Abd/Extr - Ok Incisions - CDI Coagulation Studies Laboratory Tests Test 03/11/25 03:15 03/11/25 08:45 03/11/25 12:12 03/11/25 13:15 APTT (Heparin Protocol) 57 SECONDS (45-60) Patient Sex (Coag) M Patient Height (Coag) 185cm Patient Weight (Coag) 74.0k KG Patient Blood Volume 5940 ML Pump Volume 1500 ML Total Blood Volume 7440 ML Projected Heparin Concentration 2.6 MG/KG Heparin [place] 101 Calculated Heparin Bolus 18763 UNITS Activated Coagulation Time Baseline 127 SEC (101-148) Activated Coag Time 1.70 U/mL 257 SEC (193-297) Activated Coag Time 2.84 U/mL 372 SEC (260-420) Heparin Level (COAG) 0 MG/KG Calculated Heparin Req (Hep Assay) 74229 UNITS Calculated Protamine Req (Hep Assay 0 MG Activated Clotting Time 121 SEC (101-148) Fibrinogen 301 MG/DL (177-424) Coagulation Clinical Comments Test 03/12/25 03:07 Prothrombin Time 11.5 SECONDS (9.0-12.0) INR International Normalized Ratio 1.1 INR Activated Partial Thromboplast Time 33 SECONDS (22-32) H Coagulation Comments Cardiac Rhythm: Sinus Rhythm Problem\\Assessment\\Plan Problems/Diagnosis: (1) STEMI (ST elevation myocardial infarction) Status: Acute Additional Plan POD # 5 CV stable Continue rehab. DC planning. Sepsis Screening Reassessment Date: Mar 16, 2025 Supervising Co-signing Provider: Gabriel Problem Qualifiers (1) STEMI (ST elevation myocardial infarction): Qualified Codes: I21.11 - ST elevation (STEMI) myocardial infarction involving right coronary artery KRISTEN ENCISO Mar 16, 2025 08:56
[2025-03-16 11:00] VITALS: BP 138/71; PULSE 82; RESP 20; TEMP 98.2; O2SAT 97
[2025-03-16] MEDS: JUVEN Smoothie Arginine/Glut./Ca2+Bmb (Juven 19.3pkt) 240ml cup PO SCH (12:30)
[2025-03-16 15:00] VITALS: BP 127/62; PULSE 85; RESP 20; TEMP 98.7; O2SAT 98
== END 2025-03-16 16:20 | DRG 231 ==
LOC: ER 01:57 → CICU 2S 04:07 → UNDOADMIN 04:07 → CICU 2S 04:13 → PCU 3S 03-14 19:37
PROVIDERS: ADMIT Internal Medicine Critical Care Medicine; ATTEND Internal Medicine
PROC: 027034Z Dilation of Coronary Artery, One Artery with Drug-eluting Intraluminal Device, Percutaneous Approach (ICD-10-PCS; 2025-03-09)
PROC: 4A023N7 Measurement of Cardiac Sampling and Pressure, Left Heart, Percutaneous Approach (ICD-10-PCS; 2025-03-09)
PROC: B2181ZZ Fluoroscopy of Left Internal Mammary Bypass Graft using Low Osmolar Contrast (ICD-10-PCS; 2025-03-09)
PROC: B2171ZZ Fluoroscopy of Right Internal Mammary Bypass Graft using Low Osmolar Contrast (ICD-10-PCS; 2025-03-09)
PROC: B2111ZZ Fluoroscopy of Multiple Coronary Arteries using Low Osmolar Contrast (ICD-10-PCS; 2025-03-09)
PROC: B2151ZZ Fluoroscopy of Left Heart using Low Osmolar Contrast (ICD-10-PCS; 2025-03-09)
PROC: B41F1ZZ Fluoroscopy of Right Lower Extremity Arteries using Low Osmolar Contrast (ICD-10-PCS; 2025-03-09)
PROC: B41C1ZZ Fluoroscopy of Pelvic Arteries using Low Osmolar Contrast (ICD-10-PCS; 2025-03-09)
PROC: 021209W Bypass Coronary Artery, Three Arteries from Aorta with Autologous Venous Tissue, Open Approach (ICD-10-PCS; 2025-03-11)
PROC: 06BP4ZZ Excision of Right Saphenous Vein, Percutaneous Endoscopic Approach (ICD-10-PCS; 2025-03-11)
PROC: 5A1221Z Performance of Cardiac Output, Continuous (ICD-10-PCS; 2025-03-11)
PROC: 04HY32Z Insertion of Monitoring Device into Lower Artery, Percutaneous Approach (ICD-10-PCS; 2025-03-11)
PROC: 02100Z9 Bypass Coronary Artery, One Artery from Left Internal Mammary, Open Approach (ICD-10-PCS; principal; 2025-03-11 08:15)
PROC: B3251ZZ Computerized Tomography (CT Scan) of Bilateral Common Carotid Arteries using Low Osmolar Contrast (ICD-10-PCS; 2025-03-12)
PROC: B32G1ZZ Computerized Tomography (CT Scan) of Bilateral Vertebral Arteries using Low Osmolar Contrast (ICD-10-PCS; 2025-03-12)
PROC: B3201ZZ Computerized Tomography (CT Scan) of Thoracic Aorta using Low Osmolar Contrast (ICD-10-PCS; 2025-03-12)
PROC: B32R1ZZ Computerized Tomography (CT Scan) of Intracranial Arteries using Low Osmolar Contrast (ICD-10-PCS; 2025-03-12)
PROC: B3281ZZ Computerized Tomography (CT Scan) of Bilateral Internal Carotid Arteries using Low Osmolar Contrast (ICD-10-PCS; 2025-03-12)
DX: I21.19 ST elevation (STEMI) myocardial infarction involving other coronary artery of inferior wall (principal); I63.532 Cerebral infarction due to unspecified occlusion or stenosis of left posterior cerebral artery; J44.9 Chronic obstructive pulmonary disease, unspecified; E03.9 Hypothyroidism, unspecified; R47.01 Aphasia; E78.5 Hyperlipidemia, unspecified; K22.70 Barrett's esophagus without dysplasia; I21.11 ST elevation (STEMI) myocardial infarction involving right coronary artery; I25.10 Atherosclerotic heart disease of native coronary artery without angina pectoris; Z87.891 Personal history of nicotine dependence; H53.40 Unspecified visual field defects; Z79.82 Long term (current) use of aspirin; I95.1 Orthostatic hypotension; R27.0 Ataxia, unspecified
CPT/HCPCS: 0232T; 93306; 93312; 93325; 93458; 99291; C9606; 36415; 36600; 70450; 70496; 70498; 70551; 71045; 71250; 80047; 80048; 80053; 80061; 81003; 82330; 82435; 82565; 82803; 82810; 82947; 82948; 83036; 83735; 83880; 84100; 84132; 84295; 84443; 84484; 85018; 85025; 85347; 85384; 85610; 85730; 86885; 86900; 86901; 86920; 87081; 92508; 92616; 93005; 93880; 93970; 94002; 94010; 94668; 97110; 97116; 97161; 97530; 99152; 99153; A4615; A4618; A5200; A6213; A6258; A6449; A6590; A7000; A7048; C1725; C1751; C1769; C1874; C1894; G0378; J0461; J0690; J1100; J1200; J1644; J1815; J1938; J2003; J2151; J2250; J2270; J2371; J2405; J2440; J2704; J2919; J3010; J3246; J3373; J3375; J3475; J3480; J3490; J7030; J7040; J7050; J7120; P9045; P9047; Q9967

== ENCOUNTER 2025-03-31 11:06 | Day surgery (SDC) | payer MEDICARE, BC ==
[2025-03-31] VITALS (12 sets, daily range): BP systolic 129–150; BP diastolic 70–84; PULSE 60–83; RESP 15–16; TEMP 97.7; O2SAT 95–97
[~2025-03-31] VITALS: Ht 185.4 cm; Wt 76.2 kg
[~2025-03-31 11:06] MED LIST: LEVO25TA7 PO
[2025-03-31] MEDS ORDERED: ACET-890 PO (11:43)
[2025-03-31] MEDS ORDERED: ASPI81TA52 PO (11:44)
[2025-03-31] MEDS ORDERED: LACT1CAP26 PO (11:44)
[2025-03-31] MEDS ORDERED: CLOP75TA33 PO (11:45)
[2025-03-31] MEDS ORDERED: ATOR10TA87 PO (11:45)
[2025-03-31] MEDS ORDERED: LEVO50TA PO (11:46)
[2025-03-31] MEDS ORDERED: LACT-373 PO (11:46)
[2025-03-31] MEDS ORDERED: MULT-1085 PO (11:47)
[2025-03-31] MEDS ORDERED: LOP12.5T PO (11:47)
[2025-03-31] MEDS ORDERED: PANT40TA54 PO (11:48)
[2025-03-31] MEDS ORDERED: HYDR-3973 PO (11:48)
--- NOTE | 2025-03-31 12:35 | RADIOLOGY REPORT ---
CHEST RADIOGRAPH INDICATION: S/P thoracentesis TECHNIQUE: Single frontal view of the chest was obtained COMPARISON: DI CHEST,SINGLE VIEW on DOS: 03/15/25, DI CHEST,SINGLE VIEW on DOS: 03/13/25, DI CHEST,SINGLE VIEW on DOS: 03/12/25, DI CHEST,SINGLE VIEW on DOS: 03/11/25, CT CT CHEST on DOS: 03/10/25 FINDINGS: Lines and Tubes: None Lungs: Clear Pleura: Large left pleural effusion. Effacement left hemidiaphragm and left heart border. No pneumothorax. Cardiomediastinal contours: Unremarkable Bones: Unremarkable IMPRESSION: 1. Large left pleural effusion. 2. No pneumothorax.
--- NOTE | 2025-03-31 14:57 | PROCEDURE NOTE CC ---
Procedure Note Providers to CC CC: DANTE SAHNI MD ~ Planned Procedure Left Thoracentesis Indications Left sided pleural effusion post operative. Post Operative Dx: Left pleural effusion [employer] Juliocesar VASQUEZ, Dr. Dante Sahni Type of Anesthesia Local Informed Consent Informed consent obtained, discussed risks, benefits and possible complications. Patient verbalized understanding and wishes to proceed. Description Time out performed. Patient placed in high fowlers position and ultrasound used to guide catheter placement. Sterile drape applied after ChloraPrep.15cc lidocaine infiltrated. Yueh needle inserted into pleural space, with return of serosanguineous fluid. Difficult aspiration with vacuum bottle therefore gentle hand aspiration performed with syringe, approximately 800cc removed. Band aid applied to puncture site, no bleeding present. Patient tolerated procedure well, vitals remained stable, no desaturation. Post thoracentesis xray ordered. Estimated Blood Loss 0 Complication None X-Ray Findings See post thoracentesis chest xray; left pleural effusion present, no pneumothorax. EBONY ALBRIGHT Mar 31, 2025 14:57
--- NOTE | 2025-03-31 18:38 | RADIOLOGY REPORT ---
THORACENTESIS THERAPEUTIC LEFT SIDE Clinical information: Left PLEURAL EFFUSION, NOT ELSEWHERE CLASSIFIED PROCEDURE: Ultrasound Guided Left side Thoracentesis. PRE-PROCEDURE DIAGNOSIS: Moderate left pleural effusion POST-PROCEDURE DIAGNOSIS: Same Estimated Blood Loss less than 1 cc The nature, alternatives, and risks were discussed with the patient and informed consent was disclosed. All elements of maximal sterile barrier technique, hand hygiene, skin preparation, and a sterile ultrasound probe cover and gel were utilized. The patient was positioned upright and ultrasound was used to examine the posterior chest. An appropriate position was marked at the skin. After sterile preparation and draping, 1% Lidocaine 12 mL subcutaneous was administered. The pleural space was entered with a 5 [place] Yueh catheter and approximately 800 mL of bloody fluid was removed. Note that further scanning demonstrates residual echogenic fluid which may represent semisolid blood. The patient tolerated the procedure well without apparent acute complications. IMPRESSION: 1. Successful left thoracentesis. Residual fluid may represent semisolid blood. Follow-up scanning in about 8-10 days may be indicated.
== END 2025-03-31 13:15 ==
LOC: SSTAY O 11:06
PROVIDERS: ATTEND Radiology Diagnostic Radiology
DX: J90 Pleural effusion, not elsewhere classified (principal); E03.9 Hypothyroidism, unspecified; I10 Essential (primary) hypertension; K22.70 Barrett's esophagus without dysplasia; Z87.891 Personal history of nicotine dependence; Z95.1 Presence of aortocoronary bypass graft; Z82.3 Family history of stroke
CPT/HCPCS: 32555; 71045; C1729; A4615